=== PATIENT | male | born 1990 | race African-American/Black ===

== ENCOUNTER 2022-06-15 15:57 | Emergency (ER) | payer MEDICAID, OTHER ==
[~2022-06-15] VITALS: Ht 172.7 cm; Wt 89.7 kg
[2022-06-15] MEDS ORDERED: HYDROcodone-ACET 5/325MG TAB PO ONE (17:15)
[2022-06-15] MEDS ORDERED: IBUP800T27 PO (18:10)
[2022-06-15 18:31] VITALS: BP 132/76
== END 2022-06-15 18:32 | disposition home or self-care (01) ==
LOC: ER 15:57
DX: M23.92 Unspecified internal derangement of left knee (principal); M23.91 Unspecified internal derangement of right knee
CPT/HCPCS: 73560

== ENCOUNTER 2022-08-20 18:18 | Emergency (ER) | payer MEDICAID ==
[~2022-08-20] VITALS: Ht 172.7 cm; Wt 86.3 kg
[~2022-08-20 18:18] MED LIST: IBUP800T27 PO
[2022-08-20 19:36] VITALS: BP 124/69
[2022-08-20] MEDS ORDERED: IBUP800T27 PO (20:03)
== END 2022-08-20 20:45 | disposition home or self-care (01) ==
LOC: ER 18:18
DX: G44.209 Tension-type headache, unspecified, not intractable (principal); F17.200 Nicotine dependence, unspecified, uncomplicated

== ENCOUNTER 2022-09-17 07:21 | Emergency (ER) | payer MEDICAID ==
[~2022-09-17] VITALS: Ht 172.7 cm; Wt 87.5 kg
[2022-09-17] MEDS ORDERED: FAMOTIDINE 20 MG TAB PO ONE (08:45)
[2022-09-17] MEDS ORDERED: ONDANSETRON ODT 4 MG TAB PO ONE (08:45)
[2022-09-17] MEDS ORDERED: MAALOX PLUS or MAALOX 30 ML PO ONE (08:45)
[2022-09-17] MEDS ORDERED: DONNATAL 5ml ORAL Elix (BELLADONNA ALK-PHENOBARB) PO ONE (08:45)
[2022-09-17] MEDS ORDERED: ONDA-144 PO (09:41)
[2022-09-17 10:11] VITALS: BP 108/70
== END 2022-09-17 10:13 | disposition home or self-care (01) ==
LOC: ER 07:21
DX: R11.2 Nausea with vomiting, unspecified (principal); R19.7 Diarrhea, unspecified; F17.210 Nicotine dependence, cigarettes, uncomplicated; Z88.6 Allergy status to analgesic agent
CPT/HCPCS: 99284; Q0162

== ENCOUNTER 2023-01-16 10:17 | Emergency (ER) | payer SELFPAY ==
[~2023-01-16] VITALS: Ht 180.3 cm; Wt 77.0 kg
[~2023-01-16 10:17] MED LIST changes: +IBUP-1456 PO; -IBUP800T27 PO; +ONDA-144 PO
[2023-01-16] MEDS ORDERED: METH-1181 PO (12:08)
[2023-01-16] MEDS ORDERED: IBUP-1454 PO (12:08)
[2023-01-16] MEDS ORDERED: KETOROLAC TROMETH 60MG/2ML VIAL IM ONE (12:15)
[2023-01-16 12:39] VITALS: BP 138/71; PULSE 99; RESP 18; TEMP 98.2; O2SAT 98
== END 2023-01-16 12:23 | disposition home or self-care (01) ==
LOC: ER 10:17
DX: M54.59 Other low back pain (principal); F17.210 Nicotine dependence, cigarettes, uncomplicated
CPT/HCPCS: 96372; 99283; J1885

== ENCOUNTER 2023-01-18 13:31 | Emergency (ER) | payer SELFPAY ==
[~2023-01-18] VITALS: Ht 170.2 cm; Wt 80.1 kg
[~2023-01-18 13:31] MED LIST changes: +IBUP-1454 PO; +METH-1181 PO
[2023-01-18 14:32] VITALS: BP 114/60; PULSE 78; RESP 18; TEMP 98.3; O2SAT 98
[2023-01-18] MEDS ORDERED: BACL10TA PO (14:48)
[2023-01-18] MEDS ORDERED: IBUP-1456 PO (14:48)
== END 2023-01-18 14:59 | disposition home or self-care (01) ==
LOC: ER 13:31
DX: S39.012D Strain of muscle, fascia and tendon of lower back, subsequent encounter (principal); F17.210 Nicotine dependence, cigarettes, uncomplicated; X58.XXXD Exposure to other specified factors, subsequent encounter
CPT/HCPCS: 72100

== ENCOUNTER 2023-11-06 00:16 | Emergency (ER) | payer BC, MEDICAID ==
[~2023-11-06] VITALS: Ht 172.7 cm; Wt 86.4 kg
[~2023-11-06 00:16] MED LIST changes: +BACL10TA PO
[2023-11-06 00:20] VITALS: BP 111/72; PULSE 110; RESP 16; O2SAT 97
[2023-11-06 01:38] LABS: Urine Bacteria None Seen /hpf (None Seen)
[2023-11-06 02:15] LABS: Urine Blood 3+ /uL (Negative); Urine Clarity Clear (Clear); Urine Color Light-Yellow (Yellow); Urine Mucus FEW (None Seen); Urine Protein, UAD Negative (Negative); Urine Specific Gravity 1.023 (1.001-1.035); Urine Urobilinogen Normal (Negative); Urine WBC 2 /hpf (0 - 3); Urine pH 5.5 (5.0-9.0)
[2023-11-06] MEDS ORDERED: IBUP-1456 PO (04:23)
[2023-11-06] MEDS: KETOROLAC TROMETH 60MG/2ML VIAL IM ONE (04:49)
== END 2023-11-06 04:23 | disposition home or self-care (01) ==
LOC: ER 00:16
DX: S30.21XA Contusion of penis, initial encounter (principal); F17.210 Nicotine dependence, cigarettes, uncomplicated; Z79.899 Other long term (current) drug therapy; Z79.1 Long term (current) use of non-steroidal anti-inflammatories (NSAID); X58.XXXA Exposure to other specified factors, initial encounter; Y93.89 Activity, other specified; Y92.89 Other specified places as the place of occurrence of the external cause; Y99.8 Other external cause status
CPT/HCPCS: 81001; 96372; 99283; J1885

== ENCOUNTER 2023-11-11 17:03 | Inpatient (IN) | payer BC ==
[~2023-11-11] VITALS: Ht 172.7 cm; Wt 84.8 kg
[2023-11-11 20:47] LABS: Urine Bacteria None Seen /hpf (None Seen)
[2023-11-11 20:53] LABS: Urine Blood 3+ /uL (Negative); Urine Clarity Clear (Clear); Urine Color Light-Yellow (Yellow); Urine Mucus FEW (None Seen); Urine Protein, UAD Negative (Negative); Urine Specific Gravity 1.016 (1.001-1.035); Urine Urobilinogen Normal (Negative); Urine WBC 1 /hpf (0 - 3); Urine pH 5.5 (5.0-9.0)
[2023-11-11] MEDS: ONDANSETRON HCL 4 MG/2 ML VIAL IM ONE (21:09)
[2023-11-11] MEDS: MORPHINE SULFATE 4 MG/ML SYR/VIAL IM ONE (21:11)
[2023-11-11 23:52] LABS: Basophils # (auto) 0.1 10 ^3/uL (0-0.2); Eosinophils # (auto) 0 10 ^3/uL (0-0.8); Lymphocytes # (auto) 1.9 10 ^3/uL (0.4-5.4)
[2023-11-11 23:53] LABS: Basophils % (auto) 0.4 % (0.0-2.0); Eosinophils % (auto) 0.2 % (0.0-7.0); Hematocrit 37.7 % (41.0-53.0); Hemoglobin 12.7 g/dL (13.5-17.5); Lymphocytes % (auto) 10.3 % (10.0-50.0); Mean Corpuscular Hemoglobin 23.6 pg (28.0-32.0); Mean Corpuscular Hgb Conc. 33.6 g/dL (32.0-36.0); Mean Corpuscular Volume 70.2 fL (80.0-100.0); Monocytes # (auto) 1.6 10 ^3/uL (0-1.3); Monocytes % (auto) 8.5 % (0.0-12.0); Neutrophils # (auto) 15.1 10 ^3/uL (1.6-8.6); Neutrophils % (auto) 80.6 % (37.0-80.0); Red Blood Cells 5.37 10^6/uL (4.5-5.90); Red Cell Distribution Width 13.2 % (11.8-14.3); White Blood Cell 18.8 10^3/uL (4.4-10.8)
[2023-11-12 00:06] LABS: Chloride 107 mmol/L (98-107); Potassium 3.8 mmol/L (3.5-5.1); Sodium 136 mmol/L (136-145)
[2023-11-12 00:07] LABS: Anion Gap 9 (5-15); Calcium 9.8 mg/dL (8.7-10.4); Carbon Dioxide 20 mmol/L (20-30)
[2023-11-12 00:12] LABS: BUN/Creatinine Ratio 10.7 (10.0-20.0); Blood Urea Nitrogen 13 mg/dL (9-23); Glucose 120 mg/dL (74-106)
[2023-11-12] MEDS: HYDROcodone-ACET 5/325MG TAB PO PRN (00:34)
[2023-11-12] MEDS: MORPHINE SULFATE INJ 2 MG/ml SYRG IV PRN (06:08)
[2023-11-12 09:54] LABS: Basophils # (auto) 0.1 10 ^3/uL (0-0.2); Eosinophils # (auto) 0 10 ^3/uL (0-0.8); Lymphocytes # (auto) 1.7 10 ^3/uL (0.4-5.4); Lymphocytes % (auto) 8.5 % (10.0-50.0); Neutrophils # (auto) 16.3 10 ^3/uL (1.6-8.6)
[2023-11-12 10:00] LABS: Basophils % (auto) 0.4 % (0.0-2.0); Eosinophils % (auto) 0.1 % (0.0-7.0); Hematocrit 37.7 % (41.0-53.0); Hemoglobin 12.6 g/dL (13.5-17.5); Mean Corpuscular Hemoglobin 23.4 pg (28.0-32.0); Mean Corpuscular Hgb Conc. 33.5 g/dL (32.0-36.0); Mean Corpuscular Volume 69.9 fL (80.0-100.0); Monocytes # (auto) 1.9 10 ^3/uL (0-1.3); Monocytes % (auto) 9.6 % (0.0-12.0); Neutrophils % (auto) 81.4 % (37.0-80.0); Red Cell Distribution Width 13.6 % (11.8-14.3)
[2023-11-12 10:19] LABS: Alanine Aminotransferase 18 U/L (7-40); Albumin 4.7 g/dL (3.2-4.8); Alkaline Phosphatase 67 U/L (46-116); Anion Gap 7 (5-15); Aspartate Aminotransferase 17 U/L (13-40); BUN/Creatinine Ratio 10.9 (10.0-20.0); Bilirubin, Total 0.4 mg/dL (0.2-1.0); Blood Urea Nitrogen 13 mg/dL (9-23); Carbon Dioxide 23 mmol/L (20-30); Chloride 105 mmol/L (98-107); Glucose 98 mg/dL (74-106); Sodium 135 mmol/L (136-145); Total Protein 7.7 g/dL (5.7-8.2)
[2023-11-12 10:59] LABS: INR 1.06 (0.9-1.15); Partial Thromboplastin Time 30.7 SEC (24.5-34.5); Prothrombin Time 11.2 sec (9.3-11.8)
[2023-11-12] MEDS: ACETAMINOPHEN 325 MG TAB PO PRN (11:30)
[2023-11-12] MEDS: ONDANSETRON HCL 4 MG/2 ML VIAL IV PRN (11:32)
[2023-11-12 11:47] LABS: Amphetamine Screen, Urine Neg (NEGATIVE); Barbiturate Scree,Urine Neg (NEGATIVE); Benzodiazephine Screen, Urine Neg (NEGATIVE)
[2023-11-12 11:48] LABS: Cocaine Screen, Urine Neg (NEGATIVE); Opiate Scree,Urine Neg (NEGATIVE); Phencyclidine Screen, Urine Neg (NEGATIVE)
[2023-11-12] MEDS: cefTRIAXone 1GM/50ML D5W 50 ML IV ONE (11:59)
[2023-11-12 12:19] LABS: Cannabinoid Screen, Urine Neg (NEGATIVE)
[2023-11-12 12:43] LABS: COVID19 ANTIGEN SOFIA FIA NEGATIVE (NEGATIVE)
[2023-11-12] MEDS: CIPROFLOXACIN HCL 500 MG TAB PO SCH (13:40)
[2023-11-12 18:29] VITALS: PULSE 107; RESP 16; O2SAT 95
[2023-11-12 20:00] VITALS: BP 130/70; PULSE 113; RESP 18; TEMP 99.2; O2SAT 96
[2023-11-12 22:34] VITALS: BP 128/77; PULSE 108; RESP 18; TEMP 102.7; O2SAT 98
[2023-11-12] MEDS: TEMAZEPAM 15 MG CAP PO PRN (23:01)
[2023-11-12] MEDS: CYANOCOBALAMIN 500 MCG TAB PO ONE (23:02)
[2023-11-12] MEDS: SODIUM CHLORIDE 0.9% 1,000 ML IV SCH (23:04)
[2023-11-13 05:00] VITALS: BP 126/73; PULSE 94; RESP 16; TEMP 98.4; O2SAT 97
[2023-11-13 06:34] LABS: Chloride 103 mmol/L (98-107); Sodium 135 mmol/L (136-145)
[2023-11-13 06:35] LABS: Anion Gap 8 (5-15); Carbon Dioxide 24 mmol/L (20-30)
[2023-11-13 06:36] LABS: Calcium 10.1 mg/dL (8.7-10.4)
[2023-11-13 06:38] LABS: Basophils # (auto) 0.1 10 ^3/uL (0-0.2); Eosinophils # (auto) 0 10 ^3/uL (0-0.8); Eosinophils % (auto) 0.1 % (0.0-7.0); Red Blood Cells 5.23 10^6/uL (4.5-5.90); Red Cell Distribution Width 13.6 % (11.8-14.3)
[2023-11-13 06:40] LABS: Glucose 110 mg/dL (74-106)
[2023-11-13 06:41] LABS: BUN/Creatinine Ratio 8.3 (10.0-20.0); Blood Urea Nitrogen 11 mg/dL (9-23)
[2023-11-13 06:42] LABS: Basophils % (auto) 0.3 % (0.0-2.0); Hemoglobin 12.1 g/dL (13.5-17.5); Lymphocytes # (auto) 2.1 10 ^3/uL (0.4-5.4); Mean Corpuscular Hemoglobin 23.2 pg (28.0-32.0); Mean Corpuscular Hgb Conc. 32.8 g/dL (32.0-36.0); Mean Corpuscular Volume 70.6 fL (80.0-100.0); Monocytes # (auto) 2.7 10 ^3/uL (0-1.3); Monocytes % (auto) 11.8 % (0.0-12.0); Neutrophils # (auto) 18.3 10 ^3/uL (1.6-8.6); Neutrophils % (auto) 78.8 % (37.0-80.0); Nucleated Red Blood Cells % 0.1 %; White Blood Cell 23.2 10^3/uL (4.4-10.8)
[2023-11-13 08:00] VITALS: PULSE 108
[2023-11-13 09:00] VITALS: BP 125/70; PULSE 108; RESP 20; TEMP 100; O2SAT 97
[2023-11-13] MEDS: CYANOCOBALAMIN 500 MCG TAB PO SCH (09:28)
[2023-11-13] MEDS: ERGOCALCIFEROL 50,000 UNIT(1.25MG) CAP PO SCH (11:47)
[2023-11-13] MEDS: KETOROLAC TROMETH 30 MG/ML 1ML VIAL IV PRN (14:31)
[2023-11-13] MEDS: cefTRIAXone 1GM/50ML D5W 50 ML IV ONE (16:08)
[2023-11-13 17:00] VITALS: BP 127/71; PULSE 92; RESP 20; TEMP 100.4; O2SAT 98
[2023-11-13 20:00] VITALS: RESP 19
[2023-11-13 21:00] VITALS: BP 118/66; PULSE 111; RESP 17; TEMP 100.8; O2SAT 95
[2023-11-14] VITALS (7 sets, daily range): BP systolic 108–139; BP diastolic 52–77; PULSE 83–94; RESP 18–20; TEMP 98–101.9; O2SAT 95–99
[2023-11-14 06:16] LABS: Basophils # (auto) 0.1 10 ^3/uL (0-0.2); Basophils % (auto) 0.3 % (0.0-2.0); Eosinophils # (auto) 0.1 10 ^3/uL (0-0.8); Eosinophils % (auto) 0.3 % (0.0-7.0); Lymphocytes # (auto) 1.1 10 ^3/uL (0.4-5.4)
[2023-11-14 06:20] LABS: Hematocrit 35.7 % (41.0-53.0); Hemoglobin 11.9 g/dL (13.5-17.5); Lymphocytes % (auto) 5.3 % (10.0-50.0); Mean Corpuscular Hemoglobin 23.2 pg (28.0-32.0); Mean Corpuscular Hgb Conc. 33.3 g/dL (32.0-36.0); Mean Corpuscular Volume 69.8 fL (80.0-100.0); Monocytes # (auto) 1.7 10 ^3/uL (0-1.3); Neutrophils # (auto) 18.5 10 ^3/uL (1.6-8.6); Neutrophils % (auto) 86.1 % (37.0-80.0); Red Blood Cells 5.12 10^6/uL (4.5-5.90); Red Cell Distribution Width 13.5 % (11.8-14.3); White Blood Cell 21.4 10^3/uL (4.4-10.8)
[2023-11-14 06:36] LABS: Alanine Aminotransferase 75 U/L (7-40); Alkaline Phosphatase 85 U/L (46-116); Anion Gap 7 (5-15); BUN/Creatinine Ratio 9.7 (10.0-20.0); Blood Urea Nitrogen 11 mg/dL (9-23); Calcium 9.4 mg/dL (8.7-10.4); Carbon Dioxide 24 mmol/L (20-30); Chloride 104 mmol/L (98-107); Glucose 100 mg/dL (74-106); Potassium 3.8 mmol/L (3.5-5.1); Sodium 135 mmol/L (136-145)
[2023-11-14 06:37] LABS: Albumin 4.2 g/dL (3.2-4.8); Aspartate Aminotransferase 90 U/L (13-40); Bilirubin, Total 0.4 mg/dL (0.2-1.0); Total Protein 7.2 g/dL (5.7-8.2)
[2023-11-14 07:07] LABS: RPR Non Reactive (Non Reactive)
[2023-11-14] MEDS: cefTRIAXone 1GM/50ML D5W 50 ML IV SCH (09:21)
[2023-11-14] MEDS: LACTULOSE 20Gm/30ML SOLN PO ONE (18:47)
[2023-11-15] VITALS (9 sets, daily range): BP systolic 106–127; BP diastolic 46–77; PULSE 79–108; RESP 15–20; TEMP 99.5–102.9; O2SAT 95–98
[2023-11-15 06:11] LABS: Basophils # (auto) 0.1 10 ^3/uL (0-0.2); Basophils % (auto) 0.4 % (0.0-2.0); Eosinophils # (auto) 0.1 10 ^3/uL (0-0.8); Eosinophils % (auto) 0.3 % (0.0-7.0); Hematocrit 33.6 % (41.0-53.0); Hemoglobin 10.9 g/dL (13.5-17.5); Lymphocytes # (auto) 1.2 10 ^3/uL (0.4-5.4); Lymphocytes % (auto) 5.7 % (10.0-50.0); Mean Corpuscular Hemoglobin 22.6 pg (28.0-32.0); Mean Corpuscular Hgb Conc. 32.4 g/dL (32.0-36.0); Mean Corpuscular Volume 69.7 fL (80.0-100.0); Monocytes # (auto) 1.9 10 ^3/uL (0-1.3); Monocytes % (auto) 8.9 % (0.0-12.0); Neutrophils # (auto) 17.8 10 ^3/uL (1.6-8.6); Neutrophils % (auto) 84.7 % (37.0-80.0); Red Blood Cells 4.82 10^6/uL (4.5-5.90); Red Cell Distribution Width 13.3 % (11.8-14.3)
[2023-11-15 06:31] LABS: Alanine Aminotransferase 139 U/L (7-40); Alkaline Phosphatase 96 U/L (46-116); Anion Gap 9 (5-15); Aspartate Aminotransferase 155 U/L (13-40); BUN/Creatinine Ratio 9.9 (10.0-20.0); Bilirubin, Total 0.4 mg/dL (0.2-1.0); Blood Urea Nitrogen 10 mg/dL (9-23); Calcium 9.2 mg/dL (8.7-10.4); Carbon Dioxide 21 mmol/L (20-30); Chloride 104 mmol/L (98-107); Glucose 109 mg/dL (74-106); Potassium 3.4 mmol/L (3.5-5.1); Sodium 134 mmol/L (136-145); Total Protein 6.6 g/dL (5.7-8.2)
[2023-11-15] MEDS: LACTULOSE 20Gm/30ML SOLN PO SCH ×2 (09:05→12:02)
[2023-11-15 09:32] LABS: Hepatitis B Surface Antibody Negative (Negative)
[2023-11-15 09:44] LABS: Hepatitis B Surface Antigen Negative (Negative)
[2023-11-15 10:05] LABS: Hepatitis B Core IgM Negative
[2023-11-15] MEDS: POTASSIUM EFFERVESENT TAB 25 MEQ PO ONE (11:15)
[2023-11-15] MEDS: HYDROmorphone HCL 2 MG/ML VL/or syr IV ONE (14:36)
[2023-11-15] MEDS ORDERED: fentaNYL CITRATE 100 MCG/2 ML VL ONE (18:29)
[2023-11-15] MEDS ORDERED: PROPOFOL 10 MG/ML 20 ML IV ONE ×2 (18:30→19:40)
[2023-11-15] MEDS ORDERED: MIDAZOLAM HCL 2MG/2ML 2ml VIAL (1mg/ml) ONE (18:48)
[2023-11-15] MEDS ORDERED: MEPERIDINE HCL (25 MG/ML) 1ML VIAL IV PRN (20:00)
[2023-11-15] MEDS ORDERED: HYDROmorphone HCL 2 MG/ML VL/or syr IV PRN (20:00)
[2023-11-16] VITALS (8 sets, daily range): BP systolic 112–141; BP diastolic 65–78; PULSE 70–101; RESP 16–18; TEMP 98.2–102.9; O2SAT 93–99
[2023-11-16 05:08] LABS: Basophils # (auto) 0.1 10 ^3/uL (0-0.2); Eosinophils # (auto) 0.1 10 ^3/uL (0-0.8); Hemoglobin 10.9 g/dL (13.5-17.5); Lymphocytes # (auto) 1.6 10 ^3/uL (0.4-5.4); Lymphocytes % (auto) 7.1 % (10.0-50.0); Monocytes # (auto) 2.1 10 ^3/uL (0-1.3)
[2023-11-16 05:12] LABS: Basophils % (auto) 0.5 % (0.0-2.0); Eosinophils % (auto) 0.3 % (0.0-7.0); Hematocrit 32.4 % (41.0-53.0); Mean Corpuscular Hemoglobin 23.4 pg (28.0-32.0); Mean Corpuscular Hgb Conc. 33.7 g/dL (32.0-36.0); Mean Corpuscular Volume 69.5 fL (80.0-100.0); Monocytes % (auto) 9.1 % (0.0-12.0); Red Blood Cells 4.66 10^6/uL (4.5-5.90); Red Cell Distribution Width 13.4 % (11.8-14.3)
[2023-11-16 05:26] LABS: Anion Gap 8 (5-15); Carbon Dioxide 24 mmol/L (20-30); Chloride 104 mmol/L (98-107); Sodium 136 mmol/L (136-145)
[2023-11-16 05:28] LABS: Calcium 9.2 mg/dL (8.7-10.4)
[2023-11-16 05:32] LABS: BUN/Creatinine Ratio 7.9 (10.0-20.0); Blood Urea Nitrogen 8 mg/dL (9-23); Glucose 110 mg/dL (74-106)
[2023-11-16] MEDS ORDERED: VANCOMYCIN PER PHARMACY 0 MG IV SCH (07:00)
[2023-11-16] MEDS: VANCOMYCIN 1GM/200ML 200 ML IV ONE (08:20)
[2023-11-16] MEDS ORDERED: CEFEPIME 1GM/ 50ML 50 ML IV SCH (14:00)
[2023-11-16] MEDS ORDERED: VANCOMYCIN 1GM/200ML 200 ML IV SCH (16:00)
[2023-11-16] MEDS: PIPERACILLIN-TAZOB 3.375GM 100 ML IV SCH (18:10)
[2023-11-17 01:00] VITALS: BP 111/69; PULSE 58; RESP 17; TEMP 98.5; O2SAT 100
[2023-11-17 05:00] VITALS: BP 112/69; PULSE 67; RESP 19; TEMP 98.5; O2SAT 98
[2023-11-17 06:17] LABS: Basophils # (auto) 0.1 10 ^3/uL (0-0.2)
[2023-11-17 06:19] LABS: Basophils % (auto) 0.6 % (0.0-2.0); Eosinophils # (auto) 0.4 10 ^3/uL (0-0.8); Eosinophils % (auto) 2.2 % (0.0-7.0); Hematocrit 32.3 % (41.0-53.0); Hemoglobin 10.9 g/dL (13.5-17.5); Lymphocytes # (auto) 1.8 10 ^3/uL (0.4-5.4); Lymphocytes % (auto) 9.9 % (10.0-50.0); Mean Corpuscular Hemoglobin 23.2 pg (28.0-32.0); Mean Corpuscular Hgb Conc. 33.6 g/dL (32.0-36.0); Monocytes # (auto) 1.5 10 ^3/uL (0-1.3); Monocytes % (auto) 8.7 % (0.0-12.0); Neutrophils % (auto) 78.6 % (37.0-80.0); Red Blood Cells 4.68 10^6/uL (4.5-5.90); Red Cell Distribution Width 13.2 % (11.8-14.3); White Blood Cell 17.8 10^3/uL (4.4-10.8)
[2023-11-17 06:36] LABS: Alanine Aminotransferase 122 U/L (7-40); Albumin 3.8 g/dL (3.2-4.8); Alkaline Phosphatase 93 U/L (46-116); Anion Gap 6 (5-15); Aspartate Aminotransferase 75 U/L (13-40); BUN/Creatinine Ratio 11.3 (10.0-20.0); Blood Urea Nitrogen 11 mg/dL (9-23); Calcium 9.3 mg/dL (8.7-10.4); Carbon Dioxide 25 mmol/L (20-30); Chloride 106 mmol/L (98-107); Glucose 106 mg/dL (74-106); Sodium 137 mmol/L (136-145)
[2023-11-17 06:37] LABS: Bilirubin, Total 0.4 mg/dL (0.2-1.0); Total Protein 6.7 g/dL (5.7-8.2)
[2023-11-17 09:00] VITALS: BP 103/61; PULSE 65; RESP 16; TEMP 98.3; O2SAT 95
[2023-11-17 13:00] VITALS: BP 124/72; PULSE 76; RESP 18; TEMP 98; O2SAT 99
[2023-11-17 17:00] VITALS: BP 119/63; PULSE 74; RESP 14; TEMP 98.2; O2SAT 99
[2023-11-17] MEDS: NICOTINE 21MG/24 HR TOPICAL PATCH TD ONE (17:51)
[2023-11-17 21:00] VITALS: BP 120/77; PULSE 67; RESP 18; TEMP 97.9; O2SAT 94
[2023-11-18 01:00] VITALS: BP 106/62; PULSE 60; RESP 18; TEMP 97.7; O2SAT 94
[2023-11-18 05:00] VITALS: BP 96/53; PULSE 61; RESP 18; TEMP 97.7; O2SAT 95
[2023-11-18 07:16] LABS: Basophils # (auto) 0.1 10 ^3/uL (0-0.2)
[2023-11-18 07:20] LABS: Basophils % (auto) 0.6 % (0.0-2.0); Eosinophils # (auto) 0.5 10 ^3/uL (0-0.8); Eosinophils % (auto) 3.9 % (0.0-7.0); Hematocrit 32.1 % (41.0-53.0); Hemoglobin 10.5 g/dL (13.5-17.5); Lymphocytes # (auto) 1.8 10 ^3/uL (0.4-5.4); Lymphocytes % (auto) 14.9 % (10.0-50.0); Mean Corpuscular Hemoglobin 23.1 pg (28.0-32.0); Mean Corpuscular Hgb Conc. 32.7 g/dL (32.0-36.0); Mean Corpuscular Volume 70.5 fL (80.0-100.0); Monocytes % (auto) 8.1 % (0.0-12.0); Neutrophils # (auto) 8.9 10 ^3/uL (1.6-8.6); Neutrophils % (auto) 72.5 % (37.0-80.0); Red Blood Cells 4.55 10^6/uL (4.5-5.90); Red Cell Distribution Width 13.2 % (11.8-14.3); White Blood Cell 12.2 10^3/uL (4.4-10.8)
[2023-11-18 07:38] LABS: Anion Gap 11 (5-15); Calcium 9.7 mg/dL (8.7-10.4); Carbon Dioxide 21 mmol/L (20-30); Chloride 105 mmol/L (98-107); Sodium 137 mmol/L (136-145)
[2023-11-18 07:44] LABS: BUN/Creatinine Ratio 10.7 (10.0-20.0); Blood Urea Nitrogen 11 mg/dL (9-23); Glucose 102 mg/dL (74-106)
[2023-11-18] MEDS: IOHEXOL 300 MG/ML 100ML BOTTLE IJ ONE ×2 (07:49→07:50)
[2023-11-18] MEDS: GADOTERATE MEG 10 MMOL/20ml INJ (0.5MMOL/ml) IV ONE (07:50)
[2023-11-18] MEDS: ONDANSETRON HCL 4 MG/2 ML VIAL IV ONE (07:50)
[2023-11-18] MEDS: BUPIVACAINE 0.5% MPF INJ 30ML SDV IJ ONE (07:50)
[2023-11-18 09:00] VITALS: BP 98/65; PULSE 67; RESP 16; TEMP 98.4; O2SAT 100
[2023-11-18] MEDS: NICOTINE 21MG/24 HR TOPICAL PATCH TD SCH (09:40)
[2023-11-18 13:00] VITALS: BP 107/65; PULSE 60; RESP 18; TEMP 98.4; O2SAT 99
[2023-11-18 17:00] VITALS: BP 111/55; PULSE 63; RESP 18; TEMP 98; O2SAT 97
[2023-11-18 21:33] VITALS: BP 112/66; PULSE 61; RESP 18; TEMP 98; O2SAT 100
[2023-11-19 05:00] VITALS: BP 107/60; PULSE 60; RESP 18; TEMP 97.8; O2SAT 99
[2023-11-19 06:06] LABS: Basophils # (auto) 0.1 10 ^3/uL (0-0.2); Basophils % (auto) 0.9 % (0.0-2.0); Eosinophils # (auto) 0.5 10 ^3/uL (0-0.8); Eosinophils % (auto) 4.8 % (0.0-7.0); Hematocrit 34.4 % (41.0-53.0); Hemoglobin 11.2 g/dL (13.5-17.5); Lymphocytes # (auto) 2.1 10 ^3/uL (0.4-5.4); Mean Corpuscular Hemoglobin 23.2 pg (28.0-32.0); Mean Corpuscular Hgb Conc. 32.6 g/dL (32.0-36.0); Mean Corpuscular Volume 71.1 fL (80.0-100.0); Monocytes % (auto) 9.5 % (0.0-12.0); Neutrophils % (auto) 64.8 % (37.0-80.0); Red Blood Cells 4.83 10^6/uL (4.5-5.90); Red Cell Distribution Width 13.4 % (11.8-14.3); White Blood Cell 10.7 10^3/uL (4.4-10.8)
[2023-11-19 07:30] LABS: Alanine Aminotransferase 186 U/L (7-40); Albumin 4.1 g/dL (3.2-4.8); Alkaline Phosphatase 89 U/L (46-116); Anion Gap 5 (5-15); Aspartate Aminotransferase 128 U/L (13-40); BUN/Creatinine Ratio 10.1 (10.0-20.0); Blood Urea Nitrogen 12 mg/dL (9-23); Calcium 9.6 mg/dL (8.7-10.4); Carbon Dioxide 26 mmol/L (20-30); Chloride 106 mmol/L (98-107); Glucose 97 mg/dL (74-106); Potassium 4.2 mmol/L (3.5-5.1); Sodium 137 mmol/L (136-145)
[2023-11-19 07:31] LABS: Bilirubin, Total 0.3 mg/dL (0.2-1.0)
[2023-11-19] MEDS ORDERED: ERGO1CAP23 PO (08:30)
[2023-11-19] MEDS ORDERED: CYAN500T3 PO (08:30)
[2023-11-19] MEDS ORDERED: NIC21P TD (08:30)
[2023-11-19] MEDS ORDERED: ACET-1882 PO (08:30)
[2023-11-19] MEDS ORDERED: MET500T PO (08:30)
[2023-11-19 09:32] VITALS: BP 111/53; PULSE 62; RESP 17; TEMP 98.5; O2SAT 98
[2023-11-19] MEDS: metroNIDAZOLE 500 MG TAB PO ONE (10:58)
[2023-11-19 13:31] VITALS: BP 109/59; PULSE 61; RESP 16; TEMP 97.5; O2SAT 95
[2023-11-19] MEDS: metroNIDAZOLE 500 MG TAB PO SCH (16:03)
[2023-11-19 16:56] VITALS: BP 102/56; PULSE 64; RESP 16; TEMP 97.6; O2SAT 97
[2023-11-19] MEDS ORDERED: AMOX500T86 PO (19:16)
[2023-11-19 20:00] VITALS: PULSE 99; RESP 18; O2SAT 96
[2023-11-19 21:00] VITALS: BP 107/57; PULSE 99; RESP 18; TEMP 98.3; O2SAT 96
[2023-11-19] MEDS: MELATONIN 5 MG TAB PO ONE (23:36)
[2023-11-20 05:00] VITALS: BP 102/62; PULSE 81; RESP 19; TEMP 97.7; O2SAT 99
[2023-11-20] MEDS: AMOXICILLIN/CLAVULAN 500 MG TAB PO ONE (09:15)
[2023-11-20 09:33] VITALS: BP 102/56; PULSE 59; RESP 16; TEMP 97.8; O2SAT 100
[2023-11-20 13:25] VITALS: BP 109/57; PULSE 64; RESP 17; TEMP 97.6; O2SAT 100
[2023-11-20] MEDS ORDERED: AMOXICILLIN/CLAVULAN 500 MG TAB PO SCH (14:00)
[2023-11-20 16:50] VITALS: TEMP 36.4
[2023-11-20 17:03] VITALS: BP 108/58; PULSE 71; RESP 17; TEMP 97.5; O2SAT 99
== END 2023-11-20 17:30 | disposition home or self-care (01) | DRG 854 ==
LOC: ER 17:03 → OVERFLOW 23:28 → EAST 11-12 22:40
PROVIDERS: ADMIT Internal Medicine; ATTEND Internal Medicine
PROC: 0D9P0ZZ Drainage of Rectum, Open Approach (ICD-10-PCS; 2023-11-15)
PROC: 0T9B80Z Drainage of Bladder with Drainage Device, Via Natural or Artificial Opening Endoscopic (ICD-10-PCS; principal; 2023-11-15 18:58)
DX: A41.9 Sepsis, unspecified organism (principal); K61.0 Anal abscess; N39.0 Urinary tract infection, site not specified; K86.1 Other chronic pancreatitis; N17.9 Acute kidney failure, unspecified; K61.1 Rectal abscess; L02.215 Cutaneous abscess of perineum; R31.29 Other microscopic hematuria; F17.210 Nicotine dependence, cigarettes, uncomplicated; Z20.822 Contact with and (suspected) exposure to COVID-19; D50.9 Iron deficiency anemia, unspecified; E55.9 Vitamin D deficiency, unspecified; F10.20 Alcohol dependence, uncomplicated; Y90.9 Presence of alcohol in blood, level not specified
CPT/HCPCS: 36415; 74176; 74177; 74420; 76870; 80048; 80053; 80307; 81001; 82306; 82607; 83036; 83605; 83735; 85025; 85610; 85730; 86592; 86703; 86705; 86706; 86803; 87040; 87070; 87075; 87076; 87086; 87205; 87340; 87426; 97110; 97116; 97163; 97530; G0378; J1885; J2250; J2405; J2543; J2704; J3490

== ENCOUNTER 2024-04-25 18:08 | Emergency (ER) | payer BC ==
[~2024-04-25] VITALS: Ht 172.7 cm; Wt 86.3 kg
[~2024-04-25 18:08] MED LIST changes: +ACET-1882 PO; +AMOX500T86 PO; -BACL10TA PO; +CYAN500T3 PO; +ERGO1CAP23 PO; -IBUP-1454 PO; -IBUP-1456 PO; -METH-1181 PO; +NIC21P TD; -ONDA-144 PO
[2024-04-25] MEDS ORDERED: AUG875T PO (20:05)
--- NOTE | 2024-04-25 20:05 | ED.PDOC ---
History of Present Illness(SKN HPI Comments This is a 34-year-old male presents to the ED chief complaint perineal abscess. Patient states he had surgery about a week ago for drainage he notes sudden onset of yellow thick drainage and blood over the past 24 hours. States he has a follow up with the surgeon on May 06 notes some pain discomfort. Denies fevers, chills, nausea, vomiting or abdominal pain. Chief Complaint: Abscess Time Seen by MD: 18:44 Primary Care Provider: ANA History of Present Illness: Nurses Notes, Medications, Allergies Allergies: Coded Allergies: NO KNOWN ALLERGIES (Unverified , 06/15/22) Home Meds Active Scripts Amoxicillin & Pot Clavulanate (AUGMENTIN TABLET) 875 Mg Tb, 875 MG PO BID for 14 Days, #28 TAB Prov:JA BYERS [employer] 04/25/24 Amoxicillin & Pot Clavulanate (Augmentin) 500 Mg Tab, 1 TAB PO BID for 10 Days, #20 TAB Prov:SILVANO MERCHANT 11/19/23 Nicotine (Nicoderm 21MG/24HR) 1 Patch Ph, 1 PATCH TD DAILY for 30 Days, #30 PATCH Prov:SILVANO MERCHANT [facility] 11/19/23 Ergocalciferol (VITAMIN D 27982 UNIT) 50,000 [place], [address] UNIT PO Q7D for 30 Days, #10 CAP Prov:SILVANO MERCHANT [facility] 11/19/23 Cyanocobalamin (Gnp Vitamin B12) 500 Mcg Tab, 1000 MCG PO DAILY for 30 Days, #60 TAB Prov:SILVANO MERCHANT [facility] 11/19/23 Acetaminophen (Acetaminophen) 325 Mg Tab, 650 MG PO Q6HP PRN for 10 Days, #80 TAB Prov:SILVANO MERCHANT [facility] 11/19/23 Information Source: Patient Mode of Arrival: Ambulatory Past Medical History PAST MEDICAL HISTORY: Denies Surgical History: Denies all surgeries Family History Family History: Reviewed,noncontributory to illness, Unknown Social History Smoker: Cigarettes, Less Than 1 Pack/Day Alcohol: Occasionally Drugs: Denies Drug Use Lives In: Home Constitutional: denies: chills, diaphoresis, fatigue, fever, malaise, sweats, weakness, others EENTM: denies: blurred vision, double vision, ear bleeding, ear discharge, ear drainage, ear pain, ear ringing, eye pain, eye redness, hearing loss, mouth pain, mouth swelling, nasal discharge, nose bleeding, nose congestion, nose pain, photophobia, tearing, throat pain, throat swelling, voice changes, others Respiratory: denies: cough, hemoptysis, orthopnea, SOB at rest, shortness of breath, SOB with excertion, stridor, wheezing, others Cardiovascular: denies: chest pain, dizzy spells, diaphoresis, Dyspnea on exertion, edema, irregular heart beat, left arm pain, lightheadedness, palpitations, PND, syncope, others Gastrointestinal: denies: abdomen distended, abdominal pain, blood streaked bowels, constipated, diarrhea, dysphagia, difficulty swallowing, hematemesis, melena, nausea, poor appetite, poor fluid intake, rectal bleeding, rectal pain, vomiting, others Genitourinary: denies: burning, dysuria, flank pain, frequency, hematuria, incontinence, penile discharge, penile sore, pain, testicle pain, testicle swelling, urgency, others Neurological: denies: dizziness, fainting, headache, left sided numbness, left sided weakness, numbness, paresthesia, pre-existing deficit, right sided numbness, right sided weakness, seizure, speech problems, tingling, tremors, weakness, others Musculoskeletal: denies: back pain, gout, joint pain, joint swelling, muscle pain, muscle stiffness, neck pain, others Integumetry: reports: wounds (Perineal abscess); denies: bruises, change in color, change in hair/nails, dryness, laceration, lesions, lumps, rash, others Allergic/Immunocompromised: denies: Difficulty Healing, Frequent Infections, Hives, Itching, others Hematologic/Lymphatic: denies: anemia, blood clots, easy bleeding, easy bruising, swollen glands, others Endocrine: denies: excessive hunger, excessive sweating, excessive thirst, excessive urination, flushing, intolerance to cold, intolerance to heat, unexplained weight gain, unexplained weight loss, others Psychiatric: denies: anxiety, bipolar disorder, depression, hopeless, panic disorder, schizophrenia, sleepless, suicidal, others Physical Exam General Appearance: No Apparent Distress, Normal HEENT: Pharynx Normal Neck: Full Range of Motion, Non-Tender Respiratory: Lungs Clear, No Respiratory Distress, Normal Breath Sounds Cardiovascular: No Murmur, Normal Peripheral Pulses, Regular Rate/Rhythm Breast Exam: Deferred Gastrointestinal: No Organomegaly, Non Tender, No Pulsatile Mass, Normal Bowel Sounds, Soft Genitalia: Deferred Pelvic: Deferred Rectal: Deferred Extremities: Normal capillary refill, Normal inspection, Normal range of motion, Non-tender, No pedal edema Musculoskeletal : Apperance: Normal Neurologic: Alert, family program specialist II-XII nml as Tested, No Motor Deficits, Normal Affect, Normal Mood, No Sensory Deficits Cerebellar Function: Normal Reflexes: Normal Skin: Dry, Normal Color, Warm Lymphatic: No Adenopathy Was a procedure done? Was a procedure done?: Yes Sedation Sedation?: No Informed consent obtained: Yes Incision and Drainage Incision and Drainage: Abscess Location Perineum Preparation: Betadine, Saline Incision and Wound: Pus, Blood Informed consent obtained: Yes Risks/benefits/alt described: Yes Notes 18 Gauge needle used. Tolerated well with minimal blood loss Differential Diagnosis (INTG) Differential Diagnosis: Cellulitis X-Ray, Labs, Meds, VS Vital Signs Date Time Temp Pulse Resp B/P (MAP) Pulse Ox O2 Delivery O2 Flow Rate FiO2 04/25/24 20:17 98.0 89 18 119/64 (82) 99 98.0 04/25/24 20:17 89 18 99 Room Air 04/25/24 18:56 98.0 87 16 124/79 (94) 97 Current Medications Medications (Trade) Dose Ordered Sig/Khushboo Route Start Time Stop Time Status Last Admin Acetaminophen/ Hydrocodone Bitart ([place] 5/325MG Tab) 1 tab ONCE ONCE PO 04/25/24 19:45 04/25/24 19:46 DC 04/25/24 20:07 Ceftriaxone Sodium (Rocephin) 1,000 mg ONCE ONCE IM 04/25/24 20:00 04/25/24 20:01 DC 04/25/24 20:07 X-Ray, Labs, Meds, VS Comment See procedure note. Given Rocephin 1 g IM. Start patient on doxycycline 100 mg twice daily x7 days. Advised patient to keep his appointment with the surgeon May 06 for follow up. Advised follow up his PCP in 24-48 hours for wound re-evaluation. Return here to the ER or urgent care. Advised on Sitz baths to encourage drainage. Return precautions given patient indicated understanding agrees with discharge plan of care. Advised rest from work for 1 day. Time of 1ST Reevaluation: 20:02 Reevaluation 1ST: Improved Patient Education/Counseling: Diagnosis, Treatment, Prognosis, Need For Follow Up Family Education/Counseling: Diagnosis, Treatment, Prognosis, Need For Follow Up Departure 1 Departure Time of Disposition: 20:01 Impression: Primary Impression: Abscess of perineum Disposition: 01 HOME / SELF CARE / HOMELESS Condition: Stable e-Prescriptions Amoxicillin & Pot Clavulanate (AUGMENTIN TABLET) 875 Mg Tb 875 MG PO BID for 14 Days, #28 TAB Prov: JA BYERS 04/25/24 Discharged With: Spouse Critical Care Note Critical Care Time?: No Stability Stability form required: JA Scott Apr 25, 2024 20:05
[2024-04-25] MEDS: cefTRIAXone SOD 1,000 MG VL IM ONE (20:07)
[2024-04-25] MEDS: HYDROcodone-ACET 5/325MG TAB PO ONE (20:07)
[2024-04-25 20:17] VITALS: BP 119/64; PULSE 89; RESP 18; TEMP 98; O2SAT 99
== END 2024-04-25 20:34 | disposition home or self-care (01) ==
LOC: ER 18:08
DX: L02.215 Cutaneous abscess of perineum (principal); F17.210 Nicotine dependence, cigarettes, uncomplicated; Z79.899 Other long term (current) drug therapy; Z98.890 Other specified postprocedural states
CPT/HCPCS: 10060; 96372; 99283; J0696

== ENCOUNTER 2024-07-14 19:35 | Emergency (ER) | payer BC ==
[~2024-07-14] VITALS: Ht 172.7 cm; Wt 88.2 kg
[~2024-07-14 19:35] MED LIST changes: +ACET650T12 PO; +FAMO20TA10 PO; +ZOFR4T PO
--- NOTE | 2024-07-14 20:04 | ED.PDOC ---
General HPI Comments * 34 y/o M presents from [facility] facility for c/o possible scrotal abscess, today. * Patient reports, noticing a "pimple-size" abscess in his scrotum 2 days ago. * He comments on being seen and evaluated at urgent care earlier today. Patient was sent to the ED for further work-up, due to history of perianal abscess. * Patient states on having recurrent perianal abscess for the past 7x months amidst multiple outpatient surgical intervention and antibiotic medication regimen placement. * He comments on his care being overseen by Dr. Jared Josue general surgeon, and being placed on doxycycline 1 week ago. Patient has not completed his course of antibiotics yet. Denies any other associated symptoms Vitals Temperature: 98.9F Respiratory rate: 20 SpO2: 99%RA Heart rate: 92 Blood pressure: 121/77 HPI: Poor Historian. Past Medical History: Chronic pancreatitis, Sepsis, Recurrent Perianal abscess, alcohol abuse Past Surgical History: Surgery for perianal abscess REVIEW OF SYSTEMS: CONSTITUTIONAL: Denies acute: fever, diaphoresis, chills, generalized weakness. HEAD: Denies acute: headache, photophobia Eyes: Denies acute: Double vision, vision loss, eye pain, eye discharge. EARS: Denies acute: tinnitus, hearing loss, ear discharge, ear pain, THROAT: Denies acute: sore throat, swelling, difficulty swallowing , pain with swallowing, change in voice. NECK: Denies acute: neck pain, neck swelling, stiff neck. HEART: Denies acute : chest pain, palpitations, LUNGS: Denies acute: SOB, wheezing, cough, hemoptysis ABDOMEN: Denies acute: abdominal pain, Nausea, Vomiting, diarrhea, melena , hematemesis, hematochezia SKIN: Denies acute: itchiness. EXTREMITIES: Denies acute: calf pain, numbness, tingling, weakness, denies pain in extremity. Denies acute: Low back pain. Neuro: Denies acute: focal neurological deficit, motor or sensory focal neurological deficit, tremors, seizure like activity, confusion, dizziness, change in mental status, loss of bowel or bladder function, cauda equina like symptoms. : Denies acute: dysuria, hematuria, flank pain, increase in urinary frequency. PSYCH: Denies acute: hallucination, suicidal ideation, homicidal ideation. PHYSICAL EXAM: General: no acute distress, awake and alert. Head: normocephalic, atraumatic. Neck: supple, trachea is midline, no swelling. Throat: Normal phonation. Eyes:, no erythema, no purulent discharge, no proptosis, no icterus. Heart: regular rate, regular rhythm, no significant murmur appreciated. Lungs: no apparent respiratory distress, Able to speak in full sentences. No wheezing, no rhonchi, no crackles. No stridors Clear to auscultation bilaterally. Abdomen: non tender to palpation, non distended, soft, no guarding, no rebound, + bowel sounds. : Normal-appearing external male genitalia uncircumcised. Palpation of the testicles themselves there is no tenderness to palpation. There is a noted left scrotal wall induration abscess that patient states was draining in the past few days. There is evidence of mild discharged from the small abscess present at the left testicular wall. No associated crepitus or erythema. Patient has left groin inguinal region focal tenderness to palpation likely lymphadenopathy. Evaluation of the patient's chronic perineal abscess there is no active discharge and no swelling and no appreciated erythema. Neuro: Awake, Alert, oriented to name, self, situation, follows commands GCS=15. Speech is normal. Skin: no petechia, no purpura, no cyanosis, non-pale, not jaundice. Lower extremities: --no - Pitting edema no deformity, no focal swelling, no calf TTP. Makes eye contact. moves all four extremities. Face: no apparent facial droop. Ambulating in the ED independently. ED COURSE: Time Seen by : 19:45 Reviewed notes: Nurses Notes, Medications, Allergies Allergies: Coded Allergies: NO KNOWN ALLERGIES (Unverified , 07/09/24) Home Meds Active Scripts Acetaminophen (Acetaminophen Er) 650 Mg Tab, 650 MG PO TIDPRN PRN for 5 Days, #15 TAB Prov:ANA CRISTINA CARDENAS MD 07/09/24 Famotidine (PEPCID TABLET) 20 Mg Tb, 1 TAB PO BID for 5 Days, #10 TAB 5 Refills Prov:ANA CRISTINA CARDENAS MD 07/09/24 Ondansetron Odt 4MG Tab (ZOFRAN PO) 4 Mg Tb, 4 MG PO TIDPRN PRN for 3 Days, #9 TAB ODT TAB-DISSOLVE IN MOUTH, THEN SWALLOW Prov:ANA CRISTINA CARDENAS MD 07/09/24 Information Source: Patient, [facility] Medical Record Mode of Arrival: Ambulatory Severity: Moderate Inability to void: None Timing: Months Duration: Since onset Past Medical History PAST MEDICAL HISTORY: Denies Family History Family History: Unknown Social History Smoker: Non-Smoker Alcohol: Occasionally Drugs: Marijuana Lives In: Home Was a procedure done? Was a procedure done?: No Differential Diagnosis Kidney stone (Female): N/A Kidney stone (Male): N/A Penile/Scrotal: Epidiymitis, Foreign Body, Prostatitis, STD, UTI, Fractured Penis, Phimosis, Hydrocele, Testicular Torsion, Urolithiasis, Urinary Retention, Other (Cristiane gangrene, sepsis, abscess,) X-Ray, Labs, Meds, VS Vital Signs Date Time Temp Pulse Resp B/P (MAP) Pulse Ox O2 Delivery O2 Flow Rate FiO2 07/14/24 19:59 98.9 92 20 121/77 (92) 99 98.9 Lab Test 07/14/24 20:11 07/14/24 19:46 Range/Units White Blood Count 15.7 H 4.4-10.8 10^3/uL Red Blood Count 5.92 H 4.5-5.90 10^6/uL Hemoglobin 13.7 13.5-17.5 g/dL Hematocrit 42.1 41.0-53.0 % Mean Corpuscular Volume 71.2 L 80.0-100.0 fL Mean Corpuscular Hemoglobin 23.2 L 28.0-32.0 pg Mean Corpuscular Hemoglobin Concent 32.6 32.0-36.0 g/dL Red Cell Distribution Width 14.0 11.8-14.3 % Platelet Count 242 140-450 10^3/uL Mean Platelet Volume 8.9 6.9-10.8 fL Neutrophils (%) (Auto) 68.0 37.0-80.0 % Lymphocytes (%) (Auto) 21.9 10.0-50.0 % Monocytes (%) (Auto) 7.3 0.0-12.0 % Eosinophils (%) (Auto) 1.7 0.0-7.0 % Basophils (%) (Auto) 1.1 0.0-2.0 % Neutrophils # (Auto) 10.7 H 1.6-8.6 10 ^3/uL Lymphocytes # (Auto) 3.4 0.4-5.4 10 ^3/uL Monocytes # (Auto) 1.1 0-1.3 10 ^3/uL Eosinophils # (Auto) 0.3 0-0.8 10 ^3/uL Basophils # (Auto) 0.2 0-0.2 10 ^3/uL Nucleated Red Blood Cells 0.0 % Erythrocyte Sedimentation Rate 2 0-20 mm/hr Sodium Level 138 136-145 mmol/L Potassium Level 4.8 3.5-5.1 mmol/L Chloride Level 108 H 98-107 mmol/L Carbon Dioxide Level 22 20-31 mmol/L Anion Gap 8 5-15 Blood Urea Nitrogen 16 9-23 mg/dL Creatinine 1.78 H 0.700-1.30 mg/dL Glomerular Filtration Rate Calc 51 >90 mL/min BUN/Creatinine Ratio 9.0 L 10.0-20.0 Serum Glucose 101 74-106 mg/dL Lactic Acid Level 1.0 0.4-2.0 mmol/L Calcium Level 9.7 8.7-10.4 mg/dL Total Bilirubin 0.2 0.2-1.0 mg/dL Aspartate Amino Transferase (AST) 72 H 13-40 U/L Alanine Aminotransferase (ALT) 70 H 7-40 U/L Alkaline Phosphatase 73 46-116 U/L C-Reactive Protein High Sensitivity 0.16 <1.0 mg/dL Total Protein 7.4 5.7-8.2 g/dL Albumin 4.7 3.2-4.8 g/dL Urine Color Yellow Yellow Urine Clarity Clear Clear Urine pH 5.5 5.0-9.0 Urine Specific [place] 1.029 1.001-1.035 Urine Protein Trace H Negative Urine Ketones Trace Negative Urine Blood 3+ H Negative /uL Urine Nitrite Negative Negative Urine Bilirubin Negative Negative Urine Urobilinogen 2 H Negative mg/dL Urine Leukocyte Esterase Negative Negative /uL Urine RBC 27 0 - 3 /hpf Urine Microscopic WBC 1 0-3 /HPF Urine Squamous Epithelial Cells Few <5 /hpf Urine Bacteria None seen None Seen /hpf Urine Mucus Few None Seen Urine Yeast (Budding) Occasional None Seen /hpf Urine Glucose Normal Normal mg/dL [place] [id number] Ph: [phone] DIAGNOSTIC IMAGING Diagnostic Imaging Report : [id number] Signed PATIENT: CONSTANTIN CUBA ACCT: [id number] UNIT: [id number] : 1990 LOC: ER ROOM / BED: / AGE / SEX: 34 / M ADM STATUS: REG ER SERVICE 10 ORDERING PHYSICIAN: LAURA KNAPP DO PROCEDURE(s): ABPLIV - CT AB PEL WITH IV CON ONLY REASON: L scrotal wall abscess. ORDER NUMBER(s): [id number], ACCESSION NUMBER(s): [id number] Exam: CT CT AB PEL WITH IV CON ONLY History: L scrotal wall abscess. COMPARISON: None Technique: Multidetector spiral CT of the abdomen and pelvis was performed from lung bases to pubic symphysis. Intravenous contrast was administered during this examination. Portal venous imaging was obtained. Axial, coronal and sagi ttal multiplanar reformats were performed by the technologist on a separate workstation. Radiation Dose : 1. Abdomen/Pelvis: CTDIvol 13.24mGy, DLP 738.82 mGy*cm. CONTRAST: Type of contrast: Omni 300 Contrast injected: 100 ml Findings: Lung Bases: No acute or significant lung base finding. Normal heart size. No pleural or pericardial effusion. Liver: The liver is normal in size. No focal lesions. Normal hepatic vascular enhancement. Gallbladder and Biliary Tree: Unremarkable Spleen: Unremarkable Pancreas: The pancreas is normal in appearance without focal lesions or abnormal enhancement. Adrenal Glands: Unremarkable Kidneys: No hydronephrosis. Bladder: Unremarkable Bowel: The stomach is grossly normal in appearance. Small bowel and colon are normal in caliber and distribution. Normal appendix is visualized in the right lower quadrant without findings of appendicitis. Ascites: Absent Lymphadenopathy: No mesenteric, retroperitoneal or periportal lymphadenopathy. Abdominal Wall and Mesentery: Trace fat containing umbilical hernia. Vasculature: The visualized abdominal aorta is normal in size and caliber. Abdominal and pelvic vessels demonstrate normal enhancement. Pelvic Organs: Unremarkable. Of note the scrotum is not imaged in this CT scan Musculoskeletal: No aggressive focal bony lesions, acute fractures or dislocation. IMPRESSION: 1. No acute abdominal or pelvic finding. 2. The scrotum was not imaged in this CT scan. Recommend scrotal ultrasound for further evaluation. Radiation optimization: All CT scans at this facility use at least one of these dose optimization techniques: automated exposure control mA and/or kV adjustment per patient size (includes targeted exams where dose is matched to clinical indication) or iterative reconstruction. ATED BY: LUCITA REYNA MD DICTATED DATE/TIME: 07/14/242102 SIGNED BY: LUCITA REYNA MD SIGNED DATE/TIME: 07/14/242102 CC: [place] [id number] Ph: [phone] DIAGNOSTIC IMAGING Diagnostic Imaging Report : [id number] Signed with Beth PATIENT: CONSTANTIN CUBA ACCT: [id number] UNIT: [id number] : 1990 LOC: ER ROOM / BED: / AGE / SEX: 34 / M ADM STATUS: REG ER SERVICE 20 ORDERING PHYSICIAN: LAURA KNAPP DO PROCEDURE(s): TESUS - TESTICULAR ULTRASOUND REASON: L testicular wall abscess, h/o perineal abscess ORDER NUMBER(s): [id number], ACCESSION NUMBER(s): [id number] ADDENDUM ADDENDUM # 1 ULTRASOUND OF SCROTUM AND CONTENTS. INDICATION: L testicular wall abscess, h/o perineal abscess COMPARISON: None TECHNIQUE: Multiple real-time grayscale sonographic and color and duplex Doppler images of the scrotum and its contents were obtained. FINDINGS: The right testicle measures 3.7 cm. The left testicle measures 3. cm. Both testicles demonstrate homogeneous echotexture without evidence of focal lesions. The right epididymal head measures 1.2 cm. The left epididymal head measures 1.8 cm. Subsequent color and duplex Doppler interrogation of the testes demonstrated symmetric normal vascular flow to both testicles. No focal areas of hyperemia were seen. IMPRESSION: 1. No evidence of torsion, epididymitis, and/or orchitis. No testicular wall abscess identified. ORIGINAL REPORT ULTRASOUND OF SCROTUM AND CONTENTS. INDICATION: L testicular wall abscess, h/o perineal abscess COMPARISON: None TECHNIQUE: Multiple real-time grayscale sonographic and color and duplex Doppler images of the scrotum and its contents were obtained. FINDINGS: The right testicle measures 3.7 cm. The left testicle measures 3. cm. Both testicles demonstrate homogeneous echotexture without evidence of focal lesions. The right epididymal head measures 1.2 cm. The left epididymal head measures 1.8 cm. Subsequent color and duplex Doppler interrogation of the testes demonstrated symmetric normal vascular flow to both testicles. No focal areas of hyperemia were seen. IMPRESSION: 1. No evidence of torsion, epididymitis, and/or orchitis. No abscess identified. ATED BY: LUCITA REYNA MD DICTATED DATE/TIME: 07/15/24 0001 SIGNED BY: LUCITA REYNA MD SIGNED DATE/TIME: 07/15/24 0001 CC: ULTRASOUND OF SCROTUM AND CONTENTS. INDICATION: L testicular wall abscess, h/o perineal abscess COMPARISON: None TECHNIQUE: Multiple real-time grayscale sonographic and color and duplex Doppler images of the scrotum and its contents were obtained. FINDINGS: The right testicle measures 3.7 cm. The left testicle measures 3. cm. Both testicles demonstrate homogeneous echotexture without evidence of focal lesions. The right epididymal head measures 1.2 cm. The left epididymal head measures 1.8 cm. Subsequent color and duplex Doppler interrogation of the testes demonstrated symmetric normal vascular flow to both testicles. No focal areas of hyperemia were seen. IMPRESSION: 1. No evidence of torsion, epididymitis, and/or orchitis. No abscess identified. ATED BY: LUCITA REYNA MD DICTATED DATE/TIME: 07/14/242327 SIGNED BY: LUCITA REYNA MD SIGNED DATE/TIME: 07/14/242327 CC: Time of 1ST Reevaluation: 19:45 Reevaluation 1ST: Unchanged Patient Education/Counseling: Diagnosis, Treatment Family Education/Counseling: No Family Present Comments Patient presented with the above HPI. Perineal/scrotal possible abscess workup w as initiated. patient was found with the above mentioned diagnosis. the following medications were ordered: please refer to order lists of meds and tests obtained by myself Dr. Knapp. Patient ED course and VS have been stabilized. Patient has been reassessed in the ED and remained in a stable condition. Pertinent incidental findings were discussed with the patient and/or family. Patient/family voices understanding and is agreeable with plan. Patient has been observed in the ED adequate length of time to insure improvement/stability. Escalation of care considered: Consideration of escalation to observation or admission Patient was DISCHARGED home in a stable condition. All the reports of any imaging studies that were ordered by myself were reviewed by myself. Departure 1 Departure Time of Disposition: 01:12 Impression: Primary Impression: Scrotal wall abscess Additional Impression: Yeast UTI Disposition: 01 HOME / SELF CARE / HOMELESS Condition: Stable Additional Instructions: Additional discharge instructions: You MUST follow-up with your primary care/family doctor in 1 to 2 days. If you are unable to see your primary care/family doctor, please return to our emergency room for re-assessment and re-evaluation in 1 to 2 days. Return to the emergency room here in our facility or to the nearest ER [facility] if your symptoms change or worsen. CONSULTATIONS: you MUST Follow-up for consultation as soon as possible with: -urology and general surgery in 1-2 days. Please call for appointment. You MUST call the consultants office yourself to make an appointment. You may need to arrange that through your insurance and/or your primary/family doctor. If you are unable to see the outplacement consultant in 1 to 2 days, you must return to our emergency room (or any other ER of your choice) for re-assessment and re- evaluation. Adequate fluid hydration. Complete your course of antibiotics. Below is a copy of your radiological report for follow up: [address] [address] Ph: [phone] DIAGNOSTIC IMAGING Diagnostic Imaging Report : [id number] Signed PATIENT: CONSTANTIN CUBA ACCT: [id number] UNIT: [id number] : 1990 LOC: ER ROOM / BED: / AGE / SEX: 34 / M ADM STATUS: REG ER SERVICE 10 ORDERING PHYSICIAN: LAURA KNAPP DO PROCEDURE(s): ABPLIV - CT AB PEL WITH IV CON ONLY REASON: L scrotal wall abscess. ORDER NUMBER(s): [id number], ACCESSION NUMBER(s): [id number] Exam: CT CT AB PEL WITH IV CON ONLY History: L scrotal wall abscess. COMPARISON: None Technique: Multidetector spiral CT of the abdomen and pelvis was performed from lung bases to pubic symphysis. Intravenous contrast was administered during this examination. Portal venous imaging was obtained. Axial, coronal and sagittal multiplanar reformats were performed by the technologist on a separate workstation. Radiation Dose : 1. Abdomen/Pelvis: CTDIvol 13.24mGy, DLP 738.82 mGy*cm. CONTRAST: Type of contrast: Omni 300 Contrast injected: 100 ml Findings: Lung Bases: No acute or significant lung base finding. Normal heart size. No pleural or pericardial effusion. Liver: The liver is normal in size. No focal lesions. Normal hepatic vascular enhancement. Gallbladder and Biliary Tree: Unremarkable Spleen: Unremarkable Pancreas: The pancreas is normal in appearance without focal lesions or abnormal enhancement. Adrenal Glands: Unremarkable Kidneys: No hydronephrosis. Bladder: Unremarkable Bowel: The stomach is grossly normal in appearance. Small bowel and colon are normal in caliber and distribution. Normal appendix is visualized in the right lower quadrant without findings of appendicitis. Ascites: Absent Lymphadenopathy: No mesenteric, retroperitoneal or periportal lymphadenopathy. Abdominal Wall and Mesentery: Trace fat containing umbilical hernia. Vasculature: The visualized abdominal aorta is normal in size and caliber. Abdominal and pelvic vessels demonstrate normal enhancement. Pelvic Organs: Unremarkable. Of note the scrotum is not imaged in this CT scan Musculoskeletal: No aggressive focal bony lesions, acute fractures or dislocation. IMPRESSION: 1. No acute abdominal or pelvic finding. 2. The scrotum was not imaged in this CT scan. Recommend scrotal ultrasound for further evaluation. Radiation optimization: All CT scans at this facility use at least one of these dose optimization techniques: automated exposure control mA and/or kV adjustment per patient size (includes targeted exams where dose is matched to clinical indication) or iterative reconstruction. ATED BY: LUCITA REYNA MD DICTATED DATE/TIME: 07/14/242102 SIGNED BY: LUCITA REYNA MD SIGNED DATE/TIME: 07/14/242102 CC: [place] [id number] Ph: [phone] DIAGNOSTIC IMAGING Diagnostic Imaging Report : [id number] Signed with Beth PATIENT: CONSTANTIN CUBA ACCT: [id number] UNIT: [id number] : 1990 LOC: ER ROOM / BED: / AGE / SEX: 34 / M ADM STATUS: REG ER SERVICE 20 ORDERING PHYSICIAN: LAURA KNAPP DO PROCEDURE(s): TESUS - TESTICULAR ULTRASOUND REASON: L testicular wall abscess, h/o perineal abscess ORDER NUMBER(s): [id number], ACCESSION NUMBER(s): [id number] ADDENDUM ADDENDUM # 1 ULTRASOUND OF SCROTUM AND CONTENTS. INDICATION: L testicular wall abscess, h/o perineal abscess COMPARISON: None TECHNIQUE: Multiple real-time grayscale sonographic and color and duplex Doppler images of the scrotum and its contents were obtained. FINDINGS: The right testicle measures 3.7 cm. The left testicle measures 3. cm. Both testicles demonstrate homogeneous echotexture without evidence of focal lesions. The right epididymal head measures 1.2 cm. The left epididymal head measures 1.8 cm. Subsequent color and duplex Doppler interrogation of the testes demonstrated symmetric normal vascular flow to both testicles. No focal areas of hyperemia were seen. IMPRESSION: 1. No evidence of torsion, epididymitis, and/or orchitis. No testicular wall abscess identified. ORIGINAL REPORT ULTRASOUND OF SCROTUM AND CONTENTS. INDICATION: L testicular wall abscess, h/o perineal abscess COMPARISON: None TECHNIQUE: Multiple real-time grayscale sonographic and color and duplex Doppler images of the scrotum and its contents were obtained. FINDINGS: The right testicle measures 3.7 cm. The left testicle measures 3. cm. Both testicles demonstrate homogeneous echotexture without evidence of focal lesions. The right epididymal head measures 1.2 cm. The left epididymal head measures 1.8 cm. Subsequent color and duplex Doppler interrogation of the testes demonstrated symmetric normal vascular flow to both testicles. No focal areas of hyperemia were seen. IMPRESSION: 1. No evidence of torsion, epididymitis, and/or orchitis. No abscess identified. ATED BY: LUCITA REYNA MD DICTATED DATE/TIME: 07/15/24 0001 SIGNED BY: LUCITA REYNA MD SIGNED DATE/TIME: 07/15/242327 CC: ULTRASOUND OF SCROTUM AND CONTENTS. INDICATION: L testicular wall abscess, h/o perineal abscess COMPARISON: None TECHNIQUE: Multiple real-time grayscale sonographic and color and duplex Doppler images of the scrotum and its contents were obtained. FINDINGS: The right testicle measures 3.7 cm. The left testicle measures 3. cm. Both testicles demonstrate homogeneous echotexture without evidence of focal lesions. The right epididymal head measures 1.2 cm. The left epididymal head measures 1.8 cm. Subsequent color and duplex Doppler interrogation of the testes demonstrated symmetric normal vascular flow to both testicles. No focal areas of hyperemia were seen. IMPRESSION: 1. No evidence of torsion, epididymitis, and/or orchitis. No abscess identified. ATED BY: LUCITA REYNA MD DICTATED DATE/TIME: 07/14/242327 SIGNED BY: LUCITA REYNA MD SIGNED DATE/TIME: 07/14/242327 CC: Discharged With: Self Critical Care Note Critical Care Time?: Yes (35 min-critical care time only) I personally scribed for LAURA KNAPP DO ([email or web address]) on 07/14/24 at 20:04. Electronically submitted by Maurice Carrillo ([email or web address]). I personally scribed for LAURA KNAPP DO ([email or web address]) on 07/14/24 at 20:13. Electronically submitted by Maurice Carrillo ([email or web address]). I personally scribed for ALURA KNAPP DO ([email or web address]) on 07/14/24 at 21:26. Electronically submitted by Maurice Carrillo ([email or web address]). I personally scribed for LAURA KNAPP DO ([email or web address]) on 07/15/24 at 00:12. Electronically submitted by Maurice Carrillo ([email or web address]). I personally scribed for LAURA KNAPP DO ([email or web address]) on 07/15/24 at 00:16. Electronically submitted by Maurice Carrillo ([email or web address]). LAURA KNAPP DO Jul 14, 2024 20:04
[2024-07-14 20:06] LABS: Urine Bacteria None Seen /hpf (None Seen)
[2024-07-14 20:20] LABS: Eosinophils # (auto) 0.3 10 ^3/uL (0-0.8); Hemoglobin 13.7 g/dL (13.5-17.5); Lymphocytes # (auto) 3.4 10 ^3/uL (0.4-5.4); Monocytes # (auto) 1.1 10 ^3/uL (0-1.3)
[2024-07-14 20:20] LABS: Urine Blood 3+ /uL (Negative); Urine Budding Yeast OCCASIONAL /hpf (None Seen); Urine Clarity Clear (Clear); Urine Color Yellow (Yellow); Urine Mucus FEW (None Seen); Urine Protein, UAD TRACE (Negative); Urine Specific Gravity 1.029 (1.001-1.035); Urine Squamous Epithelial Cell FEW /hpf (<5); Urine Urobilinogen 2 mg/dL (Negative); Urine WBC 1 /HPF (0-3); Urine pH 5.5 (5.0-9.0)
[2024-07-14 20:22] LABS: Basophils # (auto) 0.2 10 ^3/uL (0-0.2); Basophils % (auto) 1.1 % (0.0-2.0); Eosinophils % (auto) 1.7 % (0.0-7.0); Hematocrit 42.1 % (41.0-53.0); Lymphocytes % (auto) 21.9 % (10.0-50.0); Mean Corpuscular Hemoglobin 23.2 pg (28.0-32.0); Mean Corpuscular Hgb Conc. 32.6 g/dL (32.0-36.0); Mean Corpuscular Volume 71.2 fL (80.0-100.0); Monocytes % (auto) 7.3 % (0.0-12.0); Neutrophils # (auto) 10.7 10 ^3/uL (1.6-8.6); Platelet Count (auto) 242 10^3/uL (140-450); Red Blood Cells 5.92 10^6/uL (4.5-5.90); White Blood Cell 15.7 10^3/uL (4.4-10.8)
[2024-07-14 20:42] LABS: Alanine Aminotransferase 70 U/L (7-40); Albumin 4.7 g/dL (3.2-4.8); Alkaline Phosphatase 73 U/L (46-116); Anion Gap 8 (5-15); Aspartate Aminotransferase 72 U/L (13-40); Bilirubin, Total 0.2 mg/dL (0.2-1.0); Blood Urea Nitrogen 16 mg/dL (9-23); CRP High Sensitivity 0.16 mg/dL (<1.0); Calcium 9.7 mg/dL (8.7-10.4); Carbon Dioxide 22 mmol/L (20-31); Chloride 108 mmol/L (98-107); Glucose 101 mg/dL (74-106); Potassium 4.8 mmol/L (3.5-5.1); Sodium 138 mmol/L (136-145); Total Protein 7.4 g/dL (5.7-8.2)
--- NOTE | 2024-07-14 21:05 | [facility] ---
Exam: CT CT AB PEL WITH IV CON ONLY History: L scrotal wall abscess. COMPARISON: None Technique: Multidetector spiral CT of the abdomen and pelvis was performed from lung bases to pubic s ymphysis. Intravenous contrast was administered during this examination. Portal venous imaging was obtained. Axial, coronal and sagittal multiplanar reformats were performed by the technologist on a separate workstation. Radiation Dose : 1. Abdomen/Pelvis: CTDIvol 13.24mGy, DLP 738.82 mGy*cm. CONTRAST: Type of contrast: Omni 300 Contrast injected: 100 ml Findings: Lung Bases: No acute or significant lung base finding. Normal heart size. No pleural or pericardial effusion. Liver: The liver is normal in size. No focal lesions. Normal hepatic vascular enhancement. Gallbladder and Biliary Tree: Unremarkable Spleen: Unremarkable Pancreas: The pancreas is normal in appearance without focal lesions or abnormal enhancement. Adrenal Glands: Unremarkable Kidneys: No hydronephrosis. Bladder: Unremarkable Bowel: The stomach is grossly normal in appearance. Small bowel and colon are normal in caliber and d istribution. Normal appendix is visualized in the right lower quadrant without findings of appendici tis. Ascites: Absent Lymphadenopathy: No mesenteric, retroperitoneal or periportal lymphadenopathy. Abdominal Wall and Mesentery: Trace fat containing umbilical hernia. Vasculature: The visualized abdominal aorta is normal in size and caliber. Abdominal and pelvic vess els demonstrate normal enhancement. Pelvic Organs: Unremarkable. Of note the scrotum is not imaged in this CT scan Musculoskeletal: No aggressive focal bony lesions, acute fractures or dislocation. IMPRESSION: 1. No acute abdominal or pelvic finding. 2. The scrotum was not imaged in this CT scan. Recommend scrotal ultrasound for further evaluation. Radiation optimization: All CT scans at this facility use at least one of these dose optimization christiano hniques: automated exposure control mA and/or kV adjustment per patient size (includes targeted exam s where dose is matched to clinical indication) or iterative reconstruction.
[2024-07-14] MEDS ORDERED: VANCOMYCIN PER PHARMACY 0 MG IV SCH (21:30)
[2024-07-14 21:49] LABS: Erythrocyte Sedimentation Rate 2 mm/hr (0-20)
[2024-07-14] MEDS: VANCOMYCIN 1GM/250mL NS or D5W KIT IV SCH (22:30)
--- NOTE | 2024-07-14 23:30 | DVH ---
ULTRASOUND OF SCROTUM AND CONTENTS. INDICATION: L testicular wall abscess, h/o perineal abscess COMPARISON: None TECHNIQUE: Multiple real-time grayscale sonographic and color and duplex Doppler images of the scrotu m and its contents were obtained. FINDINGS: The right testicle measures 3.7 cm. The left testicle measures 3. cm. Both testicles demonstrate homogeneous echotexture without evidence of focal lesions. The right epididymal head measures 1.2 cm. The left epididymal head measures 1.8 cm. Subsequent color and duplex Doppler interrogation of the testes demonstrated symmetric normal vascula r flow to both testicles. No focal areas of hyperemia were seen. IMPRESSION: 1. No evidence of torsion, epididymitis, and/or orchitis. No abscess identified.
[2024-07-15] MEDS: SODIUM CHLORIDE 0.9% 1,000 ML IV ONE (01:35)
[2024-07-15] MEDS: PIPERACILLIN-TAZOB 3.375GM 100 ML IV ONE (01:36)
[2024-07-15] MEDS: FLUCONAZOLE 100 MG TAB PO ONE (01:40)
[2024-07-15 02:18] VITALS: BP 121/77; TEMP 98.9
[2024-07-15 02:19] VITALS: PULSE 82; RESP 16; O2SAT 99
[2024-07-15] MEDS ORDERED: IOHEXOL 300 MG/ML 100ML BOTTLE IJ ONE (04:35)
== END 2024-07-15 02:32 | disposition home or self-care (01) ==
LOC: MERGE 19:35 → ER 19:35
DX: N49.2 Inflammatory disorders of scrotum (principal); B37.49 Other urogenital candidiasis
CPT/HCPCS: 36415; 74177; 76870; 80053; 81001; 83605; 85025; 85652; 86141; 96365; 96367; 99285; J2543; J3370; J7030; Q9967

== ENCOUNTER 2024-08-08 18:17 | Emergency (ER) | payer BC ==
[~2024-08-08] VITALS: Ht 172.7 cm; Wt 87.6 kg
[2024-08-08 18:46] VITALS: BP 119/79; PULSE 92; RESP 18; TEMP 97.9; O2SAT 97
[2024-08-08] MEDS ORDERED: HYDROcodone-ACET 5/325MG TAB PO ONE (19:00)
[2024-08-08] MEDS ORDERED: TETRACAINE HCL 0.5% OPTH(EYE) SOLN 4ML LEFTEYE ONE (19:00)
[2024-08-08] MEDS ORDERED: FLUORESCEIN SOD OPTH TEST STRIP LEFTEYE ONE (19:00)
--- NOTE | 2024-08-08 19:06 | ED.PDOC ---
Back pain HPI HPI Comments 34-year-old male presents to the ED chief complaint bilateral pelvic pain times 12 hours. Patient states he awoke with bilateral groin pain reports no other related symptoms denies fever chills dysuria history of sexually transmitted diseases nausea, vomiting, or known injury. Chief Complaint: Pelvic Pain Time Seen by MD: 18:34 Primary Care Provider: ANA Brownlee Notes: Nurses Notes, Medications, Allergies Allergies: Coded Allergies: NO KNOWN ALLERGIES (Unverified , 06/15/22) Home Meds Active Scripts Tizanidine Hydrochloride (Tizanidine Hcl) 4 Mg Tab, 4 MG PO BID PRN for 4 Days, #8 TAB Prov:JA BYERS ENGINE ASSEMBLER 08/08/24 Ibuprofen (Ibuprofen) 800 Mg Tab, 800 MG PO Q8HP PRN for 5 Days, #15 TAB Prov:JA BYERS ENGINE ASSEMBLER 08/08/24 Acetaminophen (Acetaminophen Er) 650 Mg Tab, 650 MG PO TIDPRN PRN for 5 Days, #15 TAB Prov:ANA CRISTINA CARDENAS MD 07/09/24 Famotidine (PEPCID TABLET) 20 Mg Tb, 1 TAB PO BID for 5 Days, #10 TAB 5 Refills Prov:ANA CRISTINA CARDENAS MD 07/09/24 Ondansetron Odt 4MG Tab (ZOFRAN PO) 4 Mg Tb, 4 MG PO TIDPRN PRN for 3 Days, #9 TAB ODT TAB-DISSOLVE IN MOUTH, THEN SWALLOW Prov:ANA CRISTINA CARDENAS MD 07/09/24 Amoxicillin & Pot Clavulanate (Augmentin) 500 Mg Tab, 1 TAB PO BID for 10 Days, #20 TAB Prov:SILVANO MERCHANT 11/19/23 Nicotine (Nicoderm 21MG/24HR) 1 Patch Ph, 1 PATCH TD DAILY for 30 Days, #30 P ATCH Prov:SILVANO MERCHANT 11/19/23 Ergocalciferol (VITAMIN D 91402 UNIT) 50,000 [place], [address] UNIT PO Q7D for 30 Days, #10 CAP Prov:SILVANO MERCHANT 11/19/23 Cyanocobalamin (Gnp Vitamin B12) 500 Mcg Tab, 1000 MCG PO DAILY for 30 Days, #60 TAB Prov:SILVANO MERCHANT 11/19/23 Acetaminophen (Acetaminophen) 325 Mg Tab, 650 MG PO Q6HP PRN for 10 Days, #80 TAB Prov:SILVANO MERCHANT RESIDENT 11/19/23 Information Source: Patient Mode of Arrival: Ambulatory Past Medical History PAST MEDICAL HISTORY: Denies Surgical History: Denies all surgeries Family History Family History: Reviewed,noncontributory to illness, Unknown Social History Smoker: Cigarettes, Less Than 1 Pack/Day Alcohol: Occasionally Drugs: Denies Drug Use Lives In: Home Constitutional: denies: chills, diaphoresis, fatigue, fever, malaise, sweats, weakness, others EENTM: denies: blurred vision, double vision, ear bleeding, ear discharge, ear drainage, ear pain, ear ringing, eye pain, eye redness, hearing loss, mouth pain, mouth swelling, nasal discharge, nose bleeding, nose congestion, nose pain, photophobia, tearing, throat pain, throat swelling, voice changes, others Respiratory: denies: cough, hemoptysis, orthopnea, SOB at rest, shortness of breath, SOB with excertion, stridor, wheezing, others Cardiovascular: denies: chest pain, dizzy spells, diaphoresis, Dyspnea on exertion, edema, irregular heart beat, left arm pain, lightheadedness, palpitations, PND, syncope, others Gastrointestinal: denies: abdomen distended, abdominal pain, blood streaked bowels, constipated, diarrhea, dysphagia, difficulty swallowing, hematemesis, melena, nausea, poor appetite, poor fluid intake, rectal bleeding, rectal pain, vomiting, others Genitourinary: reports: others (Pelvic pain); denies: burning, dysuria, flank pain, frequency, hematuria, incontinence, penile discharge, penile sore, pain, testicle pain, testicle swelling, urgency Neurological: denies: dizziness, fainting, headache, left sided numbness, left sided weakness, numbness, paresthesia, pre-existing deficit, right sided numbness, right sided weakness, seizure, speech problems, tingling, tremors, weakness, others Musculoskeletal: denies: back pain, gout, joint pain, joint swelling, muscle pain, muscle stiffness, neck pain, others Integumetry: denies: bruises, change in color, change in hair/nails, dryness, laceration, lesions, lumps, rash, wounds, others Allergic/Immunocompromised: denies: Difficulty Healing, Frequent Infections, Hives, Itching, others Hematologic/Lymphatic: denies: anemia, blood clots, easy bleeding, easy bruising, swollen glands, others Endocrine: denies: excessive hunger, excessive sweating, excessive thirst, excessive urination, flushing, intolerance to cold, intolerance to heat, unexplained weight gain, unexplained weight loss, others Psychiatric: denies: anxiety, bipolar disorder, depression, hopeless, panic disorder, schizophrenia, sleepless, suicidal, others Physical Exam General Appearance: No Apparent Distress, Normal HEENT: Pharynx Normal Neck: Full Range of Motion, Non-Tender Respiratory: Lungs Clear, No Respiratory Distress, Normal Breath Sounds Cardiovascular: No Edema, No JVD, No Murmur, No Gallop, Normal Peripheral Pulses, Regular Rate/Rhythm Breast Exam: Deferred Gastrointestinal: No Organomegaly, Non Tender, No Pulsatile Mass, Normal Bowel Sounds, Soft Genitalia: Normal Pelvic: Deferred Rectal: Deferred Extremities: No calf tenderness, Normal capillary refill, Normal inspection, Normal range of motion, Non-tender, No pedal edema Musculoskeletal : Apperance: Normal Neurologic: Alert, chemist internship II-XII nml as Tested, No Motor Deficits, Normal Affect, Normal Mood, No Sensory Deficits Cerebellar Function: Normal Reflexes: Normal Skin: Dry, Normal Color, Warm Lymphatic: No Adenopathy Was a procedure done? Was a procedure done?: No Back Pain Differential Dx Differential Diagnosis: Fracture, Musculoskeletal Pain, Pyelonephritis, Urinary Obstruction, Urinary Tract Infection, Urolithiasis X-Ray, Labs, Meds, VS Vital Signs Date Time Temp Pulse Resp B/P (MAP) Pulse Ox O2 Delivery O2 Flow Rate FiO2 08/08/24 18:46 97.9 92 18 119/79 (92) 97 97.9 08/08/24 18:46 92 18 97 Room Air 08/08/24 18:31 97.9 92 18 119/79 (92) 97 97.9 Lab Test 08/08/24 18:30 Range/Units Urine Color Light-yellow Yellow Urine Clarity Clear Clear Urine pH 6.5 5.0-9.0 Urine Specific [place] 1.021 1.001-1.035 Urine Protein Negative Negative Urine Ketones Negative Negative Urine Blood 2+ H Negative /uL Urine Nitrite Negative Negative Urine Bilirubin Negative Negative Urine Urobilinogen Normal Negative mg/dL Urine Leukocyte Esterase Negative Negative /uL Urine RBC 32 0 - 3 /hpf Urine Microscopic WBC 1 0-3 /HPF Urine Squamous Epithelial Cells Few <5 /hpf Urine Bacteria None seen None Seen /hpf Urine Glucose Normal Normal mg/dL Current Medications Medications (Trade) Dose Ordered Sig/Khushboo Route Start Time Stop Time Status Last Admin Ketorolac Tromethamine (Toradol Injection) 60 mg ONCE ONCE IM 08/08/24 19:15 08/08/24 19:16 DC 08/08/24 19:26 X-Ray, Labs, Meds, VS Comment X-ray of pelvis no noted dislocations osseous lesions or fractures. UA within normal limits. Physical exam benign. This is likely a muscle strain. Patient was given Toradol 60 mg IM reports improvement in pain and function requesting discharge at this time. Trial muscle relaxer and anti-inflammatory script to pharmacy on file take medications as prescribed side effects discussed. Rest increase p.o. fluids with electrolytes. Follow up your PCP in 1-2 days as necessary. Return precautions given patient indicates understanding agrees with discharge plan of care. Time of 1ST Reevaluation: 19:56 Reevaluation 1ST: Improved Patient Education/Counseling: Diagnosis, Treatment, Prognosis, Need For Follow Up Family Education/Counseling: No Family Present Departure 1 Departure Time of Disposition: 19:57 Impression: Primary Impression: Strain of muscle, fascia and tendon of pelvis, initial encounter Disposition: HOME / SELF CARE / HOMELESS Condition: Stable e-Prescriptions Tizanidine Hydrochloride (Tizanidine Hcl) 4 Mg Tab 4 MG PO BID PRN for 4 Days, #8 TAB Prov: JA BYERS 08/08/24 Ibuprofen (Ibuprofen) 800 Mg Tab 800 MG PO Q8HP PRN for 5 Days, #15 TAB Prov: JA BYERS 08/08/24 Discharged With: Self Critical Care Note Critical Care Time?: No Stability Stability form required: JA Scott Aug 08, 2024 19:06
[2024-08-08 19:12] LABS: Urine Bacteria None Seen /hpf (None Seen)
[2024-08-08] MEDS: KETOROLAC TROMETH 60MG/2ML VIAL IM ONE (19:26)
[2024-08-08 19:32] LABS: Urine Blood 2+ /uL (Negative); Urine Clarity Clear (Clear); Urine Color Light-Yellow (Yellow); Urine Protein, UAD Negative (Negative); Urine Specific Gravity 1.021 (1.001-1.035); Urine Squamous Epithelial Cell FEW /hpf (<5); Urine Urobilinogen Normal (Negative); Urine WBC 1 /HPF (0-3); Urine pH 6.5 (5.0-9.0)
--- NOTE | 2024-08-08 19:55 | DVH ---
XY PELVIS AP August 08, 2024 HISTORY: PELVIC PX TECHNICAL DATA: Frontal view was obtained of the pelvis. COMPARISON: None FINDINGS: There is no abnormality involving the bony pelvis. The sacroiliac joints appear normal. There is no a bnormality of the symphysis pubis. The hip joint spaces are symmetric. The proximal femurs demonstrat e no abnormality. IMPRESSION: 1. No acute fracture or dislocation of the pelvis.
[2024-08-08] MEDS ORDERED: IBUP-1456 PO (19:58)
[2024-08-08] MEDS ORDERED: TIZA-142 PO (19:58)
== END 2024-08-08 20:08 | disposition home or self-care (01) ==
LOC: ER 18:17
DX: S39.013A Strain of muscle, fascia and tendon of pelvis, initial encounter (principal); F17.210 Nicotine dependence, cigarettes, uncomplicated; X58.XXXA Exposure to other specified factors, initial encounter; Y93.89 Activity, other specified; Y92.89 Other specified places as the place of occurrence of the external cause; Y99.8 Other external cause status
CPT/HCPCS: 72170; 81001; 96372; 99284; J1885

== ENCOUNTER → 2024-10-03 | Outpatient (CLI) | payer BC ==
[2024-10-03 12:52] LABS: Urine Bacteria None Seen /hpf (None Seen)
[2024-10-03 13:01] LABS: Basophils # (auto) 0.1 10 ^3/uL (0-0.2); Basophils % (auto) 1.1 % (0.0-2.0); Eosinophils # (auto) 0.1 10 ^3/uL (0-0.8); Eosinophils % (auto) 1.7 % (0.0-7.0); Hematocrit 38.9 % (41.0-53.0); Hemoglobin 12.9 g/dL (13.5-17.5); Lymphocytes # (auto) 2.2 10 ^3/uL (0.4-5.4); Lymphocytes % (auto) 30.9 % (10.0-50.0); Mean Corpuscular Hemoglobin 22.9 pg (28.0-32.0); Mean Corpuscular Hgb Conc. 33.1 g/dL (32.0-36.0); Mean Corpuscular Volume 69.3 fL (80.0-100.0); Monocytes # (auto) 0.6 10 ^3/uL (0-1.3); Neutrophils # (auto) 4.1 10 ^3/uL (1.6-8.6); Neutrophils % (auto) 57.3 % (37.0-80.0); Platelet Count (auto) 197 10^3/uL (140-450); Red Blood Cells 5.61 10^6/uL (4.5-5.90); Red Cell Distribution Width 14.2 % (11.8-14.3); White Blood Cell 7.1 10^3/uL (4.4-10.8)
[2024-10-03 13:09] LABS: Urine Blood 2+ /uL (Negative); Urine Clarity Clear (Clear); Urine Color Light-Yellow (Yellow); Urine Protein, UAD Negative (Negative); Urine Specific Gravity 1.019 (1.001-1.035); Urine Squamous Epithelial Cell None Seen /hpf (<5); Urine Urobilinogen Normal (Negative); Urine WBC < 1 /HPF (0-3)
[2024-10-03 13:24] LABS: Alanine Aminotransferase 38 U/L (7-40); Albumin 4.7 g/dL (3.2-4.8); Alkaline Phosphatase 55 U/L (46-116); Anion Gap 8 (5-15); Aspartate Aminotransferase 29 U/L (13-40); BUN/Creatinine Ratio 15.5 (10.0-20.0); Blood Urea Nitrogen 16 mg/dL (9-23); Calcium 9.9 mg/dL (8.7-10.4); Carbon Dioxide 23 mmol/L (20-31); Glucose 91 mg/dL (74-106); LDL Cholesterol 76 mg/dL (< 100); Potassium 4.1 mmol/L (3.5-5.1); Sodium 140 mmol/L (136-145); Total Protein 7.4 g/dL (5.7-8.2)
[2024-10-03 13:25] LABS: Bilirubin, Total 0.5 mg/dL (0.2-1.0); Chloride 109 mmol/L (98-107); Cholesterol 163 mg/dL (< 200); HDL Cholesterol 45 mg/dL (40-59); Triglycerides 225 mg/dL (< 150)
== END | disposition home or self-care (01) ==
LOC: LAB 12:32
PROVIDERS: ATTEND Internal Medicine
DX: D50.9 Iron deficiency anemia, unspecified (principal); R94.4 Abnormal results of kidney function studies; Z13.1 Encounter for screening for diabetes mellitus; Z00.01 Encounter for general adult medical examination with abnormal findings
CPT/HCPCS: 36415; 80053; 80061; 81001; 83036; 84439; 84443; 85025

== ENCOUNTER 2024-11-30 08:24 | Emergency (ER) | payer BC ==
[~2024-11-30] VITALS: Ht 172.7 cm; Wt 86.7 kg
--- NOTE | 2024-11-30 09:25 | ED.PDOC ---
History of Present Illness HPI Comments 34-year-old male came to the ER complaining of abdominal pain which started last night after eating food. Patient states that he has been having diarrhea along with the abdominal pain. Does smoke cigarettes. Has been healthy. Denies any past medical surgical history. Denies any other symptoms. Chief Complaint: Abdominal Pain Time Seen by MD: 08:29 Primary Care Provider: ANA Brownlee Notes: Nurses Notes, Medications, Allergies Allergies: Coded Allergies: NO KNOWN ALLERGIES (Unverified , 06/15/22) Home Meds Active Scripts Acetaminophen (Acetaminophen Er) 650 Mg Tab, 650 MG PO TIDPRN PRN for 5 Days, #15 TAB Prov:ANA CRISTINA CARDENAS MD 07/09/24 Famotidine (PEPCID TABLET) 20 Mg Tb, 1 TAB PO BID for 5 Days, #10 TAB 5 Refills Prov:ANA CRISTINA CARDENAS MD 07/09/24 Ondansetron Odt 4MG Tab (ZOFRAN PO) 4 Mg Tb, 4 MG PO TIDPRN PRN for 3 Days, #9 TAB ODT TAB-DISSOLVE IN MOUTH, THEN SWALLOW Prov:ANA CRISTINA CARDENAS MD 07/09/24 Amoxicillin & Pot Clavulanate (Augmentin) 500 Mg Tab, 1 TAB PO BID for 10 Days, #20 TAB Prov:SILVANO MERCHANT 11/19/23 Nicotine (Nicoderm 21MG/24HR) 1 Patch Ph, 1 PATCH TD DAILY for 30 Days, #30 PATCH Prov:SILVANO MERCHANT 11/19/23 Ergocalciferol (VITAMIN D 65243 UNIT) 50,000 [place], [address] UNIT PO Q7D for 30 Days, #10 CAP Prov:SILVANO MERCHANT 11/19/23 Cyanocobalamin (Gnp Vitamin B12) 500 Mcg Tab, 1000 MCG PO DAILY for 30 Days, #60 TAB Prov:SILVANO MERCHANT 11/19/23 Acetaminophen (Acetaminophen) 325 Mg Tab, 650 MG PO Q6HP PRN for 10 Days, #80 TAB Prov:SILVANO MERCHANT 11/19/23 Information Source: Patient Mode of Arrival: Ambulatory Severity: Moderate Timing: Days Duration: Since onset Past Medical History PAST MEDICAL HISTORY: Denies Surgical History: Denies all surgeries Family History Family History: Reviewed,noncontributory to illness, Unknown Social History Smoker: Cigarettes, Less Than 1 Pack/Day Alcohol: Occasionally Drugs: Denies Drug Use Lives In: Home Constitutional: denies: chills, diaphoresis, fatigue, fever, malaise, sweats, weakness, others EENTM: denies: blurred vision, double vision, ear bleeding, ear discharge, ear drainage, ear pain, ear ringing, eye pain, eye redness, hearing loss, mouth pain, mouth swelling, nasal discharge, nose bleeding, nose congestion, nose pain, photophobia, tearing, throat pain, throat swelling, voice changes, others Respiratory: denies: cough, hemoptysis, orthopnea, SOB at rest, shortness of breath, SOB with excertion, stridor, wheezing, others Cardiovascular: denies: chest pain, dizzy spells, diaphoresis, Dyspnea on exertion, edema, irregular heart beat, left arm pain, lightheadedness, palpitations, PND, syncope, others Gastrointestinal: reports: diarrhea; denies: abdomen distended, abdominal pain, blood streaked bowels, constipated, dysphagia, difficulty swallowing, hematemesis, melena, nausea, poor appetite, poor fluid intake, rectal bleeding, rectal pain, vomiting, others Genitourinary: denies: burning, dysuria, flank pain, frequency, hematuria, incontinence, penile discharge, penile sore, pain, testicle pain, testicle swelling, urgency, others Neurological: denies: dizziness, fainting, headache, left sided numbness, left sided weakness, numbness, paresthesia, pre-existing deficit, right sided numbness, right sided weakness, seizure, speech problems, tingling, tremors, weakness, others Musculoskeletal: denies: back pain, gout, joint pain, joint swelling, muscle pain, muscle stiffness, neck pain, others Integumetry: denies: bruises, change in color, change in hair/nails, dryness, laceration, lesions, lumps, rash, wounds, others Allergic/Immunocompromised: denies: Difficulty Healing, Frequent Infections, Hives, Itching, others Hematologic/Lymphatic: denies: anemia, blood clots, easy bleeding, easy bruising, swollen glands, others Endocrine: denies: excessive hunger, excessive sweating, excessive thirst, excessive urination, flushing, intolerance to cold, intolerance to heat, unexplained weight gain, unexplained weight loss, others Psychiatric: denies: anxiety, bipolar disorder, depression, hopeless, panic disorder, schizophrenia, sleepless, suicidal, others Physical Exam General Appearance: Moderate Distress HEENT: Normal ENT Inspection, Pharynx Normal, TMs Normal Neck: Full Range of Motion, Non-Tender, Normal, Normal Inspection Respiratory: Chest Non-Tender, Lungs Clear, No Accessory Muscle Use, No Respiratory Distress, Normal Breath Sounds Cardiovascular: No Edema, No JVD, No Murmur, No Gallop, Normal Peripheral Pulses, Regular Rate/Rhythm Breast Exam: Deferred Gastrointestinal: No Organomegaly, Non Tender, No Pulsatile Mass, Normal Bowel Sounds, Soft Genitalia: Deferred Pelvic: Deferred Rectal: Deferred Extremities: No calf tenderness, Normal capillary refill, Normal inspection, Normal range of motion, Non-tender, No pedal edema Musculoskeletal : Apperance: Normal Neurologic: Alert, hang gliding instructor II-XII nml as Tested, No Motor Deficits, Normal Affect, Normal Mood, No Sensory Deficits Cerebellar Function: Normal Reflexes: Normal Skin: Dry, Normal Color, Warm Peripheral Pulses: 3+ Radial (R), 3+ Radial (L) Lymphatic: No Adenopathy Was a procedure done? Was a procedure done?: No Differential Dx Considerations may include: Gastroenteritis Electrolyte imbalance X-Ray, Labs, Meds, VS Vital Signs Date Time Temp Pulse Resp B/P (MAP) Pulse Ox O2 Delivery O2 Flow Rate FiO2 11/30/24 11:28 98.6 68 18 126/74 (91) 98 98.6 11/30/24 09:33 98.6 95 16 121/82 (95) 100 98.6 11/30/24 09:33 95 18 100 Room Air 11/30/24 08:26 97.6 86 15 129/81 98 97.6 Lab Test 11/30/24 09:08 Range/Units White Blood Count 10.0 4.4-10.8 10^3/uL Red Blood Count 6.10 H 4.5-5.90 10^6/uL Hemoglobin 14.3 13.5-17.5 g/dL Hematocrit 44.2 41.0-53.0 % Mean Corpuscular Volume 72.4 L 80.0-100.0 fL Mean Corpuscular Hemoglobin 23.5 L 28.0-32.0 pg Mean Corpuscular Hemoglobin Concent 32.5 32.0-36.0 g/dL Red Cell Distribution Width 14.6 H 11.8-14.3 % Platelet Count 248 140-450 10^3/uL Mean Platelet Volume 9.4 6.9-10.8 fL Neutrophils (%) (Auto) 69.5 37.0-80.0 % Lymphocytes (%) (Auto) 21.9 10.0-50.0 % Monocytes (%) (Auto) 5.2 0.0-12.0 % Eosinophils (%) (Auto) 2.7 0.0-7.0 % Basophils (%) (Auto) 0.7 0.0-2.0 % Neutrophils # (Auto) 6.9 1.6-8.6 10 ^3/uL Lymphocytes # (Auto) 2.2 0.4-5.4 10 ^3/uL Monocytes # (Auto) 0.5 0-1.3 10 ^3/uL Eosinophils # (Auto) 0.3 0-0.8 10 ^3/uL Basophils # (Auto) 0.1 0-0.2 10 ^3/uL Nucleated Red Blood Cells 0.1 % Sodium Level 141 136-145 mmol/L Potassium Level 4.0 3.5-5.1 mmol/L Chloride Level 108 H 98-107 mmol/L Carbon Dioxide Level 24 20-31 mmol/L Anion Gap 9 5-15 Blood Urea Nitrogen 13 9-23 mg/dL Creatinine 1.20 0.700-1.30 mg/dL Glomerular Filtration Rate Calc 82 >90 mL/min BUN/Creatinine Ratio 10.8 10.0-20.0 Serum Glucose 97 74-106 mg/dL Calcium Level 9.5 8.7-10.4 mg/dL Current Medications Medications (Trade) Dose Ordered Sig/Khushboo Route Start Time Stop Time Status Last Admin Diphenoxylate HCl/ Atropine (Lomotil Tablet) 5 mg ONCE ONCE PO 11/30/24 08:45 11/30/24 08:46 DC 11/30/24 09:27 Patient alert. Complaining of abdominal pain. Vitals stable. Answering questions. Abdomen is soft nontender. Explained to the patient. Was told to follow up with his primary care physician. Was told to come back if there is any problem. Time of 1ST Reevaluation: :23 Reevaluation 1ST: Unchanged Patient Education/Counseling: Diagnosis, Treatment, Prognosis Family Education/Counseling: No Family Present SEPSIS Sepsis Screen Date sepsis recognized/suspect: Nov 30, 2024 Time Sepsis recognized/suspect: 828 Recent Procedure: No On Antibiotic Therapy: No Respiratory Rate >20: No Heart Rate >90: No Temp<36 C (96.8 F) or >38.3 C: No SBP <90 or MAP <65 mmHG: No New Acute Mental Status Change: No Is the patient on CPAP, BIPAP,: No Vital Signs Date Time Temp Pulse Resp B/P (MAP) Pulse Ox O2 Delivery O2 Flow Rate FiO2 11/30/24 11:28 98.6 68 18 126/74 (91) 98 98.6 11/30/24 09:33 98.6 95 16 121/82 (95) 100 98.6 11/30/24 09:33 95 18 100 Room Air 11/30/24 08:26 97.6 86 15 129/81 98 97.6 Laboratory Tests Test 11/30/24 09:08 White Blood Count 10.0 10^3/uL (4.4-10.8) Medications Medications Dose Ordered Sig/Khushboo Route Start Time Stop Time Status Last Admin Dose Admin Diphenoxylate HCl/ Atropine 5 mg ONCE ONCE PO 11/30/24 08:45 11/30/24 08:46 DC 11/30/24 09:27 Departure 1 Departure Time of Disposition: 09:24 Impression: Primary Impression: Gastroenteritis Disposition: 01 HOME / SELF CARE / HOMELESS Condition: Good Discharged With: Self Critical Care Note Critical Care Time?: No Stability Stability form required: No Heart Score Heart Score: Heart Score Response (Comments) Value History N/A 0 EKG N/A 0 Age N/A 0 Risk Factors N/A 0 Troponin N/A 0 Total 0 VIRGINIA ZARAGOZA MD Nov 30, 2024 09:25
[2024-11-30] MEDS: DIPHENOXYLATE W/ATROPINE 2.5 MG TAB PO ONE (09:27)
[2024-11-30 10:12] LABS: Potassium 4.0 mmol/L (3.5-5.1); Sodium 141 mmol/L (136-145)
[2024-11-30 10:13] LABS: Anion Gap 9 (5-15); Calcium 9.5 mg/dL (8.7-10.4); Carbon Dioxide 24 mmol/L (20-31)
[2024-11-30 10:17] LABS: Hemoglobin 14.3 g/dL (13.5-17.5); Nucleated Red Blood Cells % 0.1 %
[2024-11-30 10:18] LABS: BUN/Creatinine Ratio 10.8 (10.0-20.0); Blood Urea Nitrogen 13 mg/dL (9-23); Glucose 97 mg/dL (74-106)
[2024-11-30 10:22] LABS: Hematocrit 44.2 % (41.0-53.0); Mean Corpuscular Hemoglobin 23.5 pg (28.0-32.0); Mean Corpuscular Volume 72.4 fL (80.0-100.0)
[2024-11-30 10:27] LABS: Chloride 108 mmol/L (98-107)
[2024-11-30 11:28] VITALS: BP 126/74; PULSE 68; RESP 18; TEMP 98.6; O2SAT 98
== END 2024-11-30 11:29 | disposition home or self-care (01) ==
LOC: ER 08:24
DX: K52.9 Noninfective gastroenteritis and colitis, unspecified (principal); F17.210 Nicotine dependence, cigarettes, uncomplicated; Z79.899 Other long term (current) drug therapy
CPT/HCPCS: 36415; 80048; 85025

== ENCOUNTER 2024-12-22 19:11 | Emergency (ER) | payer BC ==
[~2024-12-22] VITALS: Ht 172.7 cm; Wt 87.0 kg
[2024-12-22 19:12] VITALS: BP 131/83; PULSE 91; RESP 18; TEMP 98.8; O2SAT 99
[2024-12-22] MEDS ORDERED: AMOX875T4 PO (21:06)
[2024-12-22] MEDS ORDERED: ACET500T58 PO (21:06)
--- NOTE | 2024-12-22 21:06 | ED.PDOC ---
Eye-HPI HPI Comments 34-year-old male presents to ER with complaints of right-sided earache pain x1 day. Patient reports that he woke up with right-sided earache pain this morning. He rates his current right-sided earache pain a 7/10 and denies use of medications for current symptoms. Patient presents to ER ambulatory on arrival, with steady gait, in no distress. Denies fever, skin changes, ear drainage, headache, n/v, dizziness, recent swimming or any further symptoms/complaints Chief Complaint: Earache Time Seen by MD: 19:29 Primary Care Provider: ANA Reviewed Notes: Nurses Notes, Medications, Allergies Allergies: Coded Allergies: Morphine (Verified Allergy, Unknown, 12/22/24) Home Meds Active Scripts Amoxicillin & Pot Clavulanate (Amoxicillin/Potassium Cla) 875 Mg Tab, 1 TAB PO BID for 7 Days, #14 TAB 0 Refills Prov:MONICA LOFTON 12/22/24 Acetaminophen (Acetaminophen) 500 Mg Tab, 500 MG PO Q4HPRN, #30 TAB 0 Refills Prov:MONICA LOFTON 12/22/24 Acetaminophen (Acetaminophen Er) 650 Mg Tab, 650 MG PO TIDPRN PRN for 5 Days, #15 TAB Prov:ANA CRISTINA CARDENAS MD 07/09/24 Famotidine (PEPCID TABLET) 20 Mg Tb, 1 TAB PO BID for 5 Days, #10 TAB 5 Refills Prov:ANA CRISTINA CARDENAS MD 07/09/24 Ondansetron Odt 4MG Tab (ZOFRAN PO) 4 Mg Tb, 4 MG PO TIDPRN PRN for 3 Days, #9 TAB ODT TAB-DISSOLVE IN MOUTH, THEN SWALLOW Prov:ANA CRISTINA CARDENAS MD 07/09/24 Amoxicillin & Pot Clavulanate (Augmentin) 500 Mg Tab, 1 TAB PO BID for 10 Days, #20 TAB Prov:SILVANO MERCHANT 11/19/23 Nicotine (Nicoderm 21MG/24HR) 1 Patch Ph, 1 PATCH TD DAILY for 30 Days, #30 PATCH Prov:SILVANO MERCHANT 11/19/23 Ergocalciferol (VITAMIN D 41481 UNIT) 50,000 [place], [address] UNIT PO Q7D for 30 Days, #10 CAP Prov:SILVANO MERCHANT 11/19/23 Cyanocobalamin (Gnp Vitamin B12) 500 Mcg Tab, 1000 MCG PO DAILY for 30 Days, #60 TAB Prov:BILLIEMÓNICASILVANO RESIDENT 11/19/23 Acetaminophen (Acetaminophen) 325 Mg Tab, 650 MG PO Q6HP PRN for 10 Days, #80 TAB Prov:PETER MERCHANTISA RESIDENT 11/19/23 Information Source: Patient Mode of Arrival: Ambulatory Past Medical History PAST MEDICAL HISTORY: Denies Surgical History: Denies all surgeries Family History Family History: Unknown Social History Smoker: Cigarettes, Less Than 1 Pack/Day Alcohol: Occasionally Drugs: Denies Drug Use Lives In: Home Constitutional: denies: chills, diaphoresis, fatigue, fever, malaise, sweats, weakness, others EENTM: reports: others (As stated in HPI) Respiratory: denies: cough, hemoptysis, orthopnea, SOB at rest, shortness of breath, SOB with excertion, stridor, wheezing, others Cardiovascular: denies: chest pain, dizzy spells, diaphoresis, Dyspnea on exertion, edema, irregular heart beat, left arm pain, lightheadedness, palpit ations, PND, syncope, others Gastrointestinal: denies: abdomen distended, abdominal pain, blood streaked b owels, constipated, diarrhea, dysphagia, difficulty swallowing, hematemesis, melena, nausea, poor appetite, poor fluid intake, rectal bleeding, rectal pain, vomiting, others Genitourinary: denies: burning, dysuria, flank pain, frequency, hematuria, incontinence, penile discharge, penile sore, pain, testicle pain, testicle swelling, urgency, others Neurological: denies: dizziness, fainting, headache, left sided numbness, left sided weakness, numbness, paresthesia, pre-existing deficit, right sided numbness, right sided weakness, seizure, speech problems, tingling, tremors, weakness, others Musculoskeletal: denies: back pain, gout, joint pain, joint swelling, muscle pain, muscle stiffness, neck pain, others Integumetry: denies: bruises, change in color, change in hair/nails, dryness, laceration, lesions, lumps, rash, wounds, others Allergic/Immunocompromised: denies: Difficulty Healing, Frequent Infections, Hives, Itching, others Hematologic/Lymphatic: denies: anemia, blood clots, easy bleeding, easy bruisi ng, swollen glands, others Endocrine: denies: excessive hunger, excessive sweating, excessive thirst, exce ssive urination, flushing, intolerance to cold, intolerance to heat, unexplained weight gain, unexplained weight loss, others Psychiatric: denies: anxiety, bipolar disorder, depression, hopeless, panic disorder, schizophrenia, sleepless, suicidal, others Physical Exam General Appearance: No Apparent Distress HEENT: PERRL/EOMI, Pharynx Normal, Other (Mild erythema/bulging noted to right TM. Remainder bilateral ear exam-unremarkable) Neck: Full Range of Motion, Non-Tender, Normal Respiratory: Chest Non-Tender, Lungs Clear, No Accessory Muscle Use, No Respiratory Distress, Normal Breath Sounds Cardiovascular: No Murmur, No Gallop, Regular Rate/Rhythm Breast Exam: Deferred Gastrointestinal: NOT DONE Genitalia: Deferred Pelvic: Deferred Rectal: Deferred Extremities: Normal capillary refill, Normal range of motion Neurologic: Alert, No Motor Deficits, Normal Affect, Normal Mood, No Sensory Deficits Cerebellar Function: Normal Reflexes: Normal Skin: Dry, Normal Color, Warm Lymphatic: No Adenopathy Was a procedure done? Was a procedure done?: No Sedation Sedation?: No EENT DIFF Eye: N/A Ear: Abrasion, Cerumen Impaction, Foreign Body, Otitis Externa, Perforation X-Ray, Labs, Meds, VS Vital Signs Date Time Temp Pulse Resp B/P (MAP) Pulse Ox O2 Delivery O2 Flow Rate FiO2 12/22/24 19:12 98.8 91 18 131/83 99 98.8 Advised to follow up with PCP in 1-2 days Patient verbalized understanding and agreeable with current plan of care Advised to return to ER immediately if symptoms worsen Time of 1ST Reevaluation: 20:40 Reevaluation 1ST: N/A Patient Education/Counseling: Diagnosis, Treatment, Prognosis, Need For Follow Up Family Education/Counseling: No Family Present SEPSIS Sepsis Screen Date sepsis recognized/suspect: Dec 22, 2024 Time Sepsis recognized/suspect: 1911 Recent Procedure: No On Antibiotic Therapy: No Respiratory Rate >20: No Heart Rate >90: No Temp<36 C (96.8 F) or >38.3 C: No SBP <90 or MAP <65 mmHG: No New Acute Mental Status Change: No Is the patient on CPAP, BIPAP,: No Vital Signs Date Time Temp Pulse Resp B/P (MAP) Pulse Ox O2 Delivery O2 Flow Rate FiO2 12/22/24 19:12 98.8 91 18 131/83 99 98.8 Departure 1 Departure Time of Disposition: 21:02 Impression: Primary Impression: Otitis media of right ear Qualified Codes: H66.91 - Otitis media, unspecified, right ear Disposition: HOME / SELF CARE / HOMELESS Condition: Stable e-Prescriptions Amoxicillin & Pot Clavulanate (Amoxicillin/Potassium Cla) 875 Mg Tab 1 TAB PO BID for 7 Days, #14 TAB 0 Refills Prov: MONICA LOFTON 12/22/24 Acetaminophen (Acetaminophen) 500 Mg Tab 500 MG PO Q4HPRN, #30 TAB 0 Refills Prov: MONICA LOFTON 12/22/24 Discharged With: Self Critical Care Note Critical Care Time?: No Stability Stability form required: No Heart Score Heart Score: Heart Score Response (Comments) Value History N/A 0 EKG N/A 0 Age N/A 0 Risk Factors N/A 0 Troponin N/A 0 Total 0 MONICA LOFTON Dec 22, 2024 21:06
== END 2024-12-22 21:22 | disposition home or self-care (01) ==
LOC: ER 19:11
DX: H66.91 Otitis media, unspecified, right ear (principal); F17.210 Nicotine dependence, cigarettes, uncomplicated; Z88.5 Allergy status to narcotic agent

== ENCOUNTER → 2025-02-04 | Outpatient (CLI) | payer BC ==
[~2025-02-04] MED LIST changes: +ACET500T58 PO; +AMOX875T4 PO
== END | disposition home or self-care (01) ==
LOC: LAB 05:34
DX: N39.0 Urinary tract infection, site not specified (principal)
CPT/HCPCS: 87086